=== PATIENT | female | born 1975 | race Two or more races ===

== ENCOUNTER 2019-04-20 17:39 | Inpatient (IN) | payer MEDICAID ==
[~2019-04-20] VITALS: Ht 162.6 cm; Wt 68.0 kg
[2019-04-20 17:50] VITALS: BP 129/87
--- NOTE | 2019-04-20 17:50 | NUR ---
ED Nurse Note: Patient came to ED from home c/o lower back pain and feeling cold x 2 days. Patient has history of DM 2, BG check now is 435, ERPA aware. 20 g IV started in right AC, blood drawn and sent to lab along with urine sample.
[2019-04-20] MEDS ORDERED: Morphine Sulfate 4mg/ml Inj (IV USE ONLY) IVP ONE (18:30)
[2019-04-20] MEDS ORDERED: Insulin Human Regular 100units/ml 3ml SUBQ ONE (18:30)
--- NOTE | 2019-04-20 18:32 | Emergency Room Report ---
History of Present Illness General Chief Complaint: Fever Source: Medical Record (Betty Day N. P.A.) Present Illness HPI 43-year-old female with history of diabetes presents with lower abdominal pain for 1 week. She saw her doctor 3 days ago and was prescribed Bactrim for a UTI. The dysuria she was having at the time has resolved a bit but she is still having abdominal pain, and is now also having some flank pain and fever. Patient had two episodes of vomiting. Patient is feeling chills and body aches but denies any cough or sore throat. No chest pain, hematuria, or diarrhea. (Betty Day N. P.A.) Allergies: Coded Allergies: AMPICILLIN (Verified Allergy, Unknown, 04/20/19) Patient History Past Medical History: see triage record Last Menstrual Period: 04/08/19 Reviewed Nursing Documentation: PMH: Agreed; PSxH: Agreed (Betty Day N. P.A.) Nursing Documentation-PMH Past Medical History: No History, Except For Hx Cardiac Problems: No Hx Hypertension: No Hx Pacemaker: No Hx Asthma: No Hx COPD: No Hx Diabetes: Yes - Type II Hx Cancer: No Hx Gastrointestinal Problems: Yes - Cholecystectomy Hx Dialysis: No History Of Psychiatric Problem: No Hx Neurological Problems: No Hx Cerebrovascular Accident: No Hx Seizures: No (Betty Day N. P.A.) Review of Systems All Other Systems: negative except mentioned in HPI (Betty Day N. P.A.) Physical Exam Vital Signs Date Time Temp Pulse Resp B/P (MAP) Pulse Ox O2 Delivery O2 Flow Rate FiO2 04/20/19 17:50 100.0 128 18 129/87 (101) 99 Room Air Sp02 EP Interpretation: reviewed, normal General Appearance: normal inspection, well appearing, no apparent distress, alert, GCS 15, non-toxic ENT: EOM grossly intact, normal pharynx, normal voice, TMs + canals normal, uvula midline Neck: normal inspection, full range of motion, supple, thyroid normal, no meningismus, no bony tend Respiratory: chest non-tender, lungs clear, normal breath sounds, no respiratory distress Cardiovascular #1: normal peripheral pulses, regular rate, rhythm Gastrointestinal: normal inspection, normal bowel sounds, non tender, soft, no mass, no organomegaly, no guarding, no rebound Genitourinary: CVA tenderness (R), CVA tenderness (L) Musculoskeletal: normal inspection, normal range of motion, gait/station normal Neurologic: alert, motor strength/tone normal, clinical partner III-XII nml as tested, oriented x3, sensory intact, speech normal Psychiatric: judgement/insight normal, mood/affect normal Skin: no rash, normal color, warm/dry Lymphatic: no adenopathy (Betty Day N. P.A.) Medical Decision Making PA Attestation Dr. Zuñiga is my supervising physician whom patient management and care has been discussed with. (Betty Day N. P.A.) PA Attestation I participated in the care of the patient along with Betty Day Briefly, this a 43-year-old female who was recently diagnosed with a urinary tract infection on Bactrim presenting with worsening lower pelvic pain now flank pain and fever. Urinalysis consistent with a persistent urinary tract infection and given her clinical presentation pyelonephritis. She remains febrile despite antipyretics and IV fluids. Patient be started on IV antibiotics and admitted for pyelonephritis. Labs also show hypokalemia which we will replete. Glucose elevated without anion gap; no indication of DKA at this time. Received IV fluids and insulin. (Zac Zuñiga MD) Diagnostic Impression: Primary Impression: Pyelonephritis Additional Impressions: Fever Qualified Codes: R50.9 - Fever, unspecified Hypokalemia Vomiting Qualified Codes: R11.2 - Nausea with vomiting, unspecified Hyperglycemia ER Course Pt. presents to the ED c/o lower abdominal pain, flank pain, fever. Ddx considered but are not limited to UTI, pyelonephritis, nephrolithiasis, appendicitis, gastroenteritis, , ovarian torsion, sepsis, influenza. Vital signs: Tachycardic at 128. Temperature of 100. H&PE are most consistent with pyelonephritis. ORDERS: CBC, CMP, lipase, urinalysis completed. WBC not elevated. Potassium low at 2.7. Glucose elevated at 431. Evidence of UTI on UA. ED INTERVENTIONS: Patient given IV normal saline for elevated blood sugar and tachycardia. Given 10 units regular insulin subcutaneous. Given morphine and Zofran for pain/nausea. Given Tylenol and Ibuprofen for fever. Given IV Ciprofloxacin for pyelonephritis. Given IV and PO KCl for hypokalemia. DISCHARGE: Patient will be admitted to Med/Surg for pyelonephritis and hypokalemia. Accepted by panel physician. Laboratory Tests Test 04/20/19 18:20 White Blood Count 9.1 K/UL (4.8-10.8) Red Blood Count 4.96 M/UL (4.20-5.40) Hemoglobin 11.6 G/DL (12.0-16.0) L Hematocrit 38.2 % (37.0-47.0) Mean Corpuscular Volume 77 FL (80-99) L Mean Corpuscular Hemoglobin 23.4 PG (27.0-31.0) L Mean Corpuscular Hemoglobin Concent 30.4 G/DL (32.0-36.0) L Red Cell Distribution Width 14.4 % (11.6-14.8) Platelet Count 232 K/UL (150-450) Mean Platelet Volume 8.8 FL (6.5-10.1) Neutrophils (%) (Auto) % (45.0-75.0) Lymphocytes (%) (Auto) % (20.0-45.0) Monocytes (%) (Auto) % (1.0-10.0) Eosinophils (%) (Auto) % (0.0-3.0) Basophils (%) (Auto) % (0.0-2.0) Neutrophils % (Manual) Pending Lymphocytes % (Manual) Pending Platelet Estimate Pending Platelet Morphology Pending Urine Color Pale yellow Urine Appearance Cloudy Urine pH 6 (4.5-8.0) Urine Specific [place] 1.005 (1.005-1.035) Urine Protein 1+ (NEGATIVE) H Urine Glucose (UA) 4+ (NEGATIVE) H Urine Ketones 3+ (NEGATIVE) H Urine Blood 2+ (NEGATIVE) H Urine Nitrite Negative (NEGATIVE) Urine Bilirubin Negative (NEGATIVE) Urine Urobilinogen Normal MG/DL (0.0-1.0) Urine Leukocyte Esterase 2+ (NEGATIVE) H Urine RBC 10-15 /HPF (0 - 2) H Urine WBC Tntc /HPF (0 - 2) H Urine Squamous Epithelial Cells Few /LPF (NONE/OCC) Urine Bacteria Many /HPF (NONE) H Urine HCG, Qualitative Pending Sodium Level 133 MMOL/L (136-145) L Potassium Level 2.7 MMOL/L (3.5-5.1) *L Chloride Level 96 MMOL/L (98-107) L Carbon Dioxide Level 24 MMOL/L (21-32) Anion Gap 14 mmol/L (5-15) Blood Urea Nitrogen 3 mg/dL (7-18) L Creatinine 0.8 MG/DL (0.55-1.30) Estimate Glomerular Filtration Rate > 60 mL/min (>60) Glucose Level 431 MG/DL (74-106) H Calcium Level 8.2 MG/DL (8.5-10.1) L Magnesium Level 1.7 MG/DL (1.8-2.4) L Total Bilirubin 0.5 MG/DL (0.2-1.0) Aspartate Amino Transferase (AST) 58 U/L (15-37) H Alanine Aminotransferase (ALT) 74 U/L (12-78) Alkaline Phosphatase 185 U/L (46-116) H Total Protein 8.1 G/DL (6.4-8.2) Albumin 3.0 G/DL (3.4-5.0) L Globulin 5.1 g/dL Albumin/Globulin Ratio 0.6 (1.0-2.7) L Lipase 67 U/L (73-393) L Acetone Level Negative (NEGATIVE) (Betty Day N. P.A.) Last Vital Signs Date Time Temp Pulse Resp B/P (MAP) Pulse Ox O2 Delivery O2 Flow Rate FiO2 04/20/19 17:50 100.0 128 18 129/87 (101) 99 Room Air (Betty Day N. P.A.) Disposition: ADMITTED INPATIENT Condition: Serious Betty Day N. P.AOlive Apr 20, 2019 18:32 Zac Zuñiga MD Apr 20, 2019 22:07
[2019-04-20 18:39] LABS: BILIRUBIN, URINE NEGATIVE (NEGATIVE); COLOR,URINE PALE YELLOW; GLUCOSE, URINE (UA) 4+ (NEGATIVE); KETONES,URINE 3+ (NEGATIVE); LEUKOCYTE ESTERASE ,URINE 2+ (NEGATIVE); NITRITE,URINE NEGATIVE (NEGATIVE); PH,URINE 6 (4.5-8.0); PROTEIN,URINE 1+ (NEGATIVE); UROBILINOGEN,URINE NORMAL MG/DL (0.0-1.0)
[2019-04-20 18:45] LABS: HEMATOCRIT 38.2 % (37.0-47.0); HEMOGLOBIN 11.6 G/DL (12.0-16.0); MEAN CORPUSCULAR VOLUME 77 FL (80-99); PLATELET COUNT 232 K/UL (150-450); RED BLOOD COUNT 4.96 M/UL (4.20-5.40); RED CELL DISTRIBUTION WIDTH 14.4 % (11.6-14.8); WHITE BLOOD COUNT 9.1 K/UL (4.8-10.8)
[2019-04-20] MEDS ORDERED: Acetaminophen 500mg (ES) tab ORAL ONE (18:45)
[2019-04-20 18:56] LABS: APPEARANCE,URINE CLOUDY
[2019-04-20 19:04] LABS: ALANINE AMINOTRANSFERASE 74 U/L (12-78); ALBUMIN/GLOBULIN RATIO 0.6 (1.0-2.7); ALKALINE PHOSPHATASE 185 U/L (46-116); ANION GAP 14 mmol/L (5-15); ASPARTATE AMINO TRANSFERASE 58 U/L (15-37); BILIRUBIN,TOTAL 0.5 MG/DL (0.2-1.0); BLOOD UREA NITROGEN 3 mg/dL (7-18); CALCIUM 8.2 MG/DL (8.5-10.1); CARBON DIOXIDE 24 MMOL/L (21-32); CHLORIDE 96 MMOL/L (98-107); CREATININE 0.8 MG/DL (0.55-1.30); SODIUM 133 MMOL/L (136-145)
[2019-04-20 19:05] LABS: POTASSIUM 2.7 MMOL/L (3.5-5.1)
--- NOTE | 2019-04-20 19:14 | NUR ---
HAND-OFF: Report given to Katherin SANCHEZ .
--- NOTE | 2019-04-20 19:14 | NUR ---
ED Nurse Note: Received report from LAURA Craig.
--- NOTE | 2019-04-20 20:01 | NUR ---
ED Nurse Note: Patient is febrile, ERMD informed.
--- NOTE | 2019-04-20 20:55 | NUR ---
ED Nurse Note: Temp recheck 99.8 F
--- NOTE | 2019-04-20 21:08 | NUR ---
ED Nurse Note: Report given to LAURA Frias in med surg.
--- NOTE | 2019-04-20 21:15 | NUR ---
ED Nurse Note: Patient cleared for transfer to med surg unit via gurney accompanied by cvt tech in stable condition.
[2019-04-20 21:25] VITALS: BP 101/62
[2019-04-20] MEDS ORDERED: Albuterol/Ipratropium 3ml neb HHN PRN (21:30)
[2019-04-20] MEDS ORDERED: Nitroglycerin Subl 0.4mg tab SL PRN (21:30)
[2019-04-20] MEDS ORDERED: Amikacin Rx to dose MISC PRN (21:30)
--- NOTE | 2019-04-20 21:35 | NUR ---
NURSE NOTES: Received report from Yon, weighmaster lead who got report from Summer ED RN. Pt is awake, lying semi-julien's; comfortably resting. No signs of acute distress noted. Pt reports 9/10 flank pain. AOx4; able to make needs known. Checked IV site, line, and rate; patent and running. No erythema, bleeding, or infiltration noted. Bed at lowest position. Brakes on. Siderails up x2. Call light within reach. Will continue to monitor.
[2019-04-20] MEDS ORDERED: Vancomycin 1 GM in D5W 275 ML IVPB SCH (22:00)
[2019-04-20] MEDS: Aztreonam Inj 1 GM in NS 55 ML IVPB SCH (22:00)
--- NOTE | 2019-04-20 23:08 | NUR ---
NURSE NOTES: Patient has 4 different antibiotics ordered. Pharmacy wants to double check with MD first if giving all antibiotics. Contacted Dr. Smallwood regarding orders. Patient also asked for pain medication. Informed MD and awaiting callback.
[2019-04-20] MEDS ORDERED: METFORMIN HCL500 M1 ORAL (23:20)
[2019-04-21] VITALS: BP 95/63
--- NOTE | 2019-04-21 01:00 | NUR ---
NURSE NOTES: Contacted and left a voicemail for Dr. Smallwood regarding antibiotics clarification orders and pain medication for the patient. Still awaiting callback.
[2019-04-21] MEDS ORDERED: Amikacin 1,000 MG in NS 110 ML IV SCH (02:00)
[2019-04-21 04:00] VITALS: BP 97/69
[2019-04-21] MEDS ORDERED: Vancomycin 1 GM in D5W 275 ML IVPB SCH ×3 (05:00)
[2019-04-21] MEDS: NovoLOG Insulin Flexpen SUBQ SCH ×4 (06:26→21:41)
--- NOTE | 2019-04-21 06:33 | NUR ---
NURSE NOTES: Dr. Smallwood gave orders, noted and carried out. See orders for details.
[2019-04-21 06:40] LABS: BASOPHILS % (AUTO) 0.2 % (0.0-2.0); EOSINOPHILS % (AUTO) 0.5 % (0.0-3.0); LYMPHOCYTES % (AUTO) 9.7 % (20.0-45.0); MEAN CORPUSCULAR VOLUME 75 FL (80-99); NEUTROPHILS % (AUTO) 83.6 % (45.0-75.0); PLATELET COUNT 175 K/UL (150-450); RED BLOOD COUNT 4.16 M/UL (4.20-5.40); RED CELL DISTRIBUTION WIDTH 13.9 % (11.6-14.8); WHITE BLOOD COUNT 12.1 K/UL (4.8-10.8)
[2019-04-21 06:55] LABS: ALANINE AMINOTRANSFERASE 72 U/L (12-78); ALBUMIN 2.2 G/DL (3.4-5.0); ALBUMIN/GLOBULIN RATIO 0.5 (1.0-2.7); ALKALINE PHOSPHATASE 159 U/L (46-116); ANION GAP 11 mmol/L (5-15); ASPARTATE AMINO TRANSFERASE 89 U/L (15-37); BILIRUBIN,TOTAL 0.6 MG/DL (0.2-1.0); BLOOD UREA NITROGEN 1 mg/dL (7-18); CALCIUM 7.5 MG/DL (8.5-10.1); CARBON DIOXIDE 21 MMOL/L (21-32); CHLORIDE 108 MMOL/L (98-107); CREATININE 0.5 MG/DL (0.55-1.30); POTASSIUM 3.8 MMOL/L (3.5-5.1); SODIUM 140 MMOL/L (136-145)
--- NOTE | 2019-04-21 07:15 | NUR ---
HAND-OFF: Report given to LAURA Quintanilla. Pt is awake and in stable condition. Plan of care endorsed.
--- NOTE | 2019-04-21 07:30 | NUR ---
NURSE NOTES: Patient is in bed awake and able to verbalize needs. Stable. C/o pain, will administer pain medication as necessary as ordered. Patient is encouraged to use call light for assistance, verbalized understanding. patient is in bed in locked and lowest position with call light within reach. All needs met. Will continue to monitor.
[2019-04-21 08:00] VITALS: BP 90/58
[2019-04-21] MEDS: Aztreonam Inj 1 GM in NS 55 ML IVPB SCH ×3 (08:02→21:28)
[2019-04-21] MEDS: Morphine Sulfate 4mg/ml Inj (IV USE ONLY) IVP PRN ×3 (09:18→21:27)
[2019-04-21] MEDS: Heparin 5000 units/ml inj SUBQ SCH ×2 (09:25→21:41)
[2019-04-21 12:00] VITALS: BP 95/67
--- NOTE | 2019-04-21 12:33 | Pulmonology Progress Note ---
Assessment/Plan Problems: (1) Pyelonephritis (2) Vomiting (3) Fever (4) Diabetes mellitus (5) Hyperglycemia Assessment/Plan warren culture iv fluids iv abx ID and GI to see Subjective ROS Limited/Unobtainable: No Constitutional: Reports: no symptoms HEENT: Repors: no symptoms Allergies: Coded Allergies: AMPICILLIN (Verified Allergy, Unknown, 04/20/19) Objective Last 24 Hour Vital Signs Date Time Temp Pulse Resp B/P (MAP) Pulse Ox O2 Delivery O2 Flow Rate FiO2 04/21/19 09:00 Room Air 04/21/19 08:00 98.5 92 18 90/58 (69) 98 04/21/19 04:00 97.6 81 19 97/69 (78) 98 04/21/19 00:06 98.6 04/21/19 00:00 98.6 107 20 95/63 (74) 99 04/20/19 21:59 Room Air 04/20/19 21:25 100.2 112 21 101/62 (75) 96 04/20/19 21:15 99.8 113 20 102/59 98 Room Air 04/20/19 20:36 99.8 04/20/19 20:01 102.9 04/20/19 19:08 100.1 04/20/19 17:50 100.0 108 18 129/87 99 Room Air 04/20/19 17:50 108 18 Room Air 04/20/19 17:50 100.0 128 18 129/87 (101) 99 Room Air Intake and Output 04/20/19 04/21/19 19:00 07:00 Intake Total 0 ml 1248 ml Balance 0 ml 1248 ml Intake Oral 0 ml IV Total 1200 ml Other 48 ml HEENT: atraumatic Respiratory/Chest: normal breath sounds Cardiovascular: normal peripheral pulses, normal rate Abdomen: normal bowel sounds, no organomegaly Microbiology Date/Time Source Procedure Growth Status 04/20/19 18:20 Urine,Clean Catch Urine Culture - Preliminary Gram Negative Bacillus 1 Resulted Laboratory Tests 04/20/19 18:20: White Blood Count 9.1, Red Blood Count 4.96, Hemoglobin 11.6L, Hematocrit 38.2, Mean Corpuscular Volume 77L, Mean Corpuscular Hemoglobin 23.4L, Mean Corpuscular Hemoglobin Concent 30.4L, Red Cell Distribution Width 14.4, Platelet Count 232, Mean Platelet Volume 8.8, Neutrophils (%) (Auto) , Lymphocytes (%) (Auto) , Monocytes (%) (Auto) , Eosinophils (%) (Auto) , Basophils (%) (Auto) , Differential Total Cells Counted 100, Neutrophils % ( Manual) 84H, Lymphocytes % (Manual) 13L, Monocytes % (Manual) 3, Eosinophils % ( Manual) 0, Basophils % (Manual) 0, Band Neutrophils 0, Platelet Estimate Adequate, Platelet Morphology Normal, Polychromasia 1+, Hypochromasia 1+, Microcytosis 1+, Urine Color Pale yellow, Urine Appearance Cloudy, Urine pH 6, Urine Specific [place] 1.005, Urine Protein 1+H, Urine Glucose (UA) 4+H, Urine Ketones 3+H, Urine Blood 2+H, Urine Nitrite Negative, Urine Bilirubin Negative, Urine Urobilinogen Normal, Urine Leukocyte Esterase 2+H, Urine RBC 10-15H, Urine WBC TntcH, Urine Squamous Epithelial Cells Few, Urine Bacteria ManyH, Urine HCG, Qualitative Negative, Sodium Level 133L, Potassium Level 2.7*L, Chloride Level 96L, Carbon Dioxide Level 24, Anion Gap 14, Blood Urea Nitrogen 3L, Creatinine 0.8, Estimat Glomerular Filtration Rate > 60, Glucose Level 431H , Calcium Level 8.2L, Magnesium Level 1.7L, Total Bilirubin 0.5, Aspartate Amino Transf (AST/SGOT) 58H, Alanine Aminotransferase (ALT/SGPT) 74, Alkaline Phosphatase 185H, Total Protein 8.1, Albumin 3.0L, Globulin 5.1, Albumin/ Globulin Ratio 0.6L, Lipase 67L, Acetone Level Negative 04/21/19 05:25: White Blood Count 12.1H, Red Blood Count 4.16L, Hemoglobin 10.0L, Hematocrit 31.0L, Mean Corpuscular Volume 75L, Mean Corpuscular Hemoglobin 24.1L, Mean Corpuscular Hemoglobin Concent 32.3, Red Cell Distribution Width 13.9, Platelet Count 175, Mean Platelet Volume 7.2, Neutrophils (%) (Auto) 83.6H, Lymphocytes ( %) (Auto) 9.7L, Monocytes (%) (Auto) 6.0, Eosinophils (%) (Auto) 0.5, Basophils (%) (Auto) 0.2, Sodium Level 140, Potassium Level 3.8, Chloride Level 108H, Carbon Dioxide Level 21, Anion Gap 11, Blood Urea Nitrogen 1L, Creatinine 0.5L, Estimat Glomerular Filtration Rate > 60, Glucose Level 316#H, Calcium Level 7.5L , Total Bilirubin 0.6, Aspartate Amino Transf (AST/SGOT) 89H, Alanine Aminotransferase (ALT/SGPT) 72, Alkaline Phosphatase 159H, Total Protein 6.3L, Albumin 2.2L, Globulin 4.1, Albumin/Globulin Ratio 0.5L Current Medications Medications (Trade) Dose Ordered Sig/Shira Route PRN Reason Start Time Stop Time Status Last Admin Dose Admin Acetaminophen (Tylenol) 650 mg Q4H PRN ORAL fever 04/20/19 21:30 05/20/19 21:29 04/20/19 23:36 Albuterol/ Ipratropium (Albuterol/ Ipratropium) 3 ml Q4H PRN HHN Shortness of Breath 04/20/19 21:30 04/25/19 21:29 Aztreonam 1 gm/ Sodium Chloride 55 ml @ 110 mls/hr EVERY 8 HOURS IVPB 04/20/19 22:00 04/27/19 21:59 04/21/19 08:02 Dextrose (Dextrose 50%) 25 ml Q30M PRN IV Hypoglycemia 04/20/19 21:30 05/20/19 21:29 Dextrose (Dextrose 50%) 50 ml Q30M PRN IV Hypoglycemia 04/20/19 21:30 05/20/19 21:29 Diphenhydramine HCl (Benadryl) 25 mg Q6H PRN IVP Itching 04/21/19 11:15 05/21/19 11:14 Heparin Sodium (Porcine) (Heparin 5000 units/ml) 5,000 units EVERY 12 HOURS SUBQ 04/21/19 09:00 05/21/19 08:59 04/21/19 09:25 Insulin Aspart (NovoLOG) BEFORE MEALS AND HS SUBQ 04/21/19 06:30 05/21/19 06:29 04/21/19 06:26 Levofloxacin 100 ml @ 100 mls/hr Q24H IVPB 04/21/19 09:00 04/28/19 08:59 04/21/19 09:18 Morphine Sulfate (Morphine Sulfate) 4 mg Q4H PRN IVP For Pain 04/21/19 07:15 04/28/19 07:14 04/21/19 09:18 Nitroglycerin (Ntg) 0.4 mg Q5M PRN SL Prn Chest Pain 04/20/19 21:30 05/20/19 21:29 Ondansetron HCl (Zofran) 4 mg Q6H PRN IVP Nausea & Vomiting 04/20/19 21:30 05/20/19 21:29 04/21/19 10:47 Polyethylene Glycol (Miralax) 17 gm DAILYPRN PRN ORAL Constipation 04/20/19 21:30 05/20/19 21:29 Temazepam (Restoril) 15 mg HSPRN PRN ORAL Insomnia 04/20/19 21:30 04/27/19 21:29 04/20/19 23:29 Vancomycin HCl 1 gm/Dextrose 275 ml @ 183.3 mls/ hr Q12H IVPB 04/21/19 05:00 04/26/19 04:59 04/21/19 05:08 Federico Smallwood MD Apr 21, 2019 12:33
--- NOTE | 2019-04-21 14:53 | General Progress Note ---
Assessment/Plan Assessment/Plan: N/V UTI pyelonephritis elevated LFTS anemia elevated lipase abx abd us repeat labs anemia work up will fu Subjective ROS Limited/Unobtainable: Yes Allergies: Coded Allergies: AMPICILLIN (Verified Allergy, Unknown, 04/20/19) Objective Last 24 Hour Vital Signs Date Time Temp Pulse Resp B/P (MAP) Pulse Ox O2 Delivery O2 Flow Rate FiO2 04/21/19 09:00 Room Air 04/21/19 08:00 98.5 92 18 90/58 (69) 98 04/21/19 04:00 97.6 81 19 97/69 (78) 98 04/21/19 00:06 98.6 04/21/19 00:00 98.6 107 20 95/63 (74) 99 04/20/19 21:59 Room Air 04/20/19 21:25 100.2 112 21 101/62 (75) 96 04/20/19 21:15 99.8 113 20 102/59 98 Room Air 04/20/19 20:36 99.8 04/20/19 20:01 102.9 04/20/19 19:08 100.1 04/20/19 17:50 100.0 108 18 129/87 99 Room Air 04/20/19 17:50 108 18 Room Air 04/20/19 17:50 100.0 128 18 129/87 (101) 99 Room Air Intake and Output 04/20/19 04/21/19 19:00 07:00 Intake Total 0 ml 1248 ml Balance 0 ml 1248 ml Intake Oral 0 ml IV Total 1200 ml Other 48 ml Laboratory Tests 04/20/19 18:20: White Blood Count 9.1, Red Blood Count 4.96, Hemoglobin 11.6L, Hematocrit 38.2, Mean Corpuscular Volume 77L, Mean Corpuscular Hemoglobin 23.4L, Mean Corpuscular Hemoglobin Concent 30.4L, Red Cell Distribution Width 14.4, Platelet Count 232, Mean Platelet Volume 8.8, Neutrophils (%) (Auto) , Lymphocytes (%) (Auto) , Monocytes (%) (Auto) , Eosinophils (%) (Auto) , Basophils (%) (Auto) , Differential Total Cells Counted 100, Neutrophils % ( Manual) 84H, Lymphocytes % (Manual) 13L, Monocytes % (Manual) 3, Eosinophils % ( Manual) 0, Basophils % (Manual) 0, Band Neutrophils 0, Platelet Estimate Adequate, Platelet Morphology Normal, Polychromasia 1+, Hypochromasia 1+, Microcytosis 1+, Urine Color Pale yellow, Urine Appearance Cloudy, Urine pH 6, Urine Specific [place] 1.005, Urine Protein 1+H, Urine Glucose (UA) 4+H, Urine Ketones 3+H, Urine Blood 2+H, Urine Nitrite Negative, Urine Bilirubin Negative, Urine Urobilinogen Normal, Urine Leukocyte Esterase 2+H, Urine RBC 10-15H, Urine WBC TntcH, Urine Squamous Epithelial Cells Few, Urine Bacteria ManyH, Urine HCG, Qualitative Negative, Sodium Level 133L, Potassium Level 2.7*L, Chloride Level 96L, Carbon Dioxide Level 24, Anion Gap 14, Blood Urea Nitrogen 3L, Creatinine 0.8, Estimat Glomerular Filtration Rate > 60, Glucose Level 431H , Calcium Level 8.2L, Magnesium Level 1.7L, Total Bilirubin 0.5, Aspartate Amino Transf (AST/SGOT) 58H, Alanine Aminotransferase (ALT/SGPT) 74, Alkaline Phosphatase 185H, Total Protein 8.1, Albumin 3.0L, Globulin 5.1, Albumin/ Globulin Ratio 0.6L, Lipase 67L, Acetone Level Negative 04/21/19 05:25: White Blood Count 12.1H, Red Blood Count 4.16L, Hemoglobin 10.0L, Hematocrit 31.0L, Mean Corpuscular Volume 75L, Mean Corpuscular Hemoglobin 24.1L, Mean Corpuscular Hemoglobin Concent 32.3, Red Cell Distribution Width 13.9, Platelet Count 175, Mean Platelet Volume 7.2, Neutrophils (%) (Auto) 83.6H, Lymphocytes ( %) (Auto) 9.7L, Monocytes (%) (Auto) 6.0, Eosinophils (%) (Auto) 0.5, Basophils (%) (Auto) 0.2, Sodium Level 140, Potassium Level 3.8, Chloride Level 108H, Carbon Dioxide Level 21, Anion Gap 11, Blood Urea Nitrogen 1L, Creatinine 0.5L, Estimat Glomerular Filtration Rate > 60, Glucose Level 316#H, Calcium Level 7.5L , Total Bilirubin 0.6, Aspartate Amino Transf (AST/SGOT) 89H, Alanine Aminotransferase (ALT/SGPT) 72, Alkaline Phosphatase 159H, Total Protein 6.3L, Albumin 2.2L, Globulin 4.1, Albumin/Globulin Ratio 0.5L Height (Feet): 5 Height (Inches): 4.00 Weight (Pounds): 150 General Appearance: alert EENT: normal ENT inspection Neck: supple Cardiovascular: normal rate Respiratory/Chest: lungs clear Abdomen: normal bowel sounds, non tender, soft Extremities: non-tender Roni Alvarez MD Apr 21, 2019 14:53
--- NOTE | 2019-04-21 15:29 | Consultation ---
History of Present Illness General Date patient seen: Apr 21, 2019 Chief Complaint: Fever Present Illness HPI 43 y/o F with hx of DM2, s/p cholecystectomy presented to ED on 04/20/19 with 1 week of lower abd pain. Recently saw PCP for dysuria and was prescribed Bactrim for UTI. Dysuria resolved but patient having abdominal and flank pain and fever ; 2 episodes of vomiting, chills, body aches. Denied cough, sore throat, chest pain, hematuria, diarrhea. Allergies: Coded Allergies: AMPICILLIN (Verified Allergy, Unknown, 04/20/19) Medication History Scheduled Metformin Hcl* (Metformin Hcl*), 500 MG ORAL TWICE A DAY, (Reported) Patient History Healthcare decision maker N Resuscitation status Full Code Advanced Directive on File Patient History Narrative Pmhx: as above Shx: reviewed Fhx: non contributory Physical Exam Physical Exam Narrative General Appearance: alert EENT: normal ENT inspection Neck: supple Cardiovascular: normal rate Respiratory/Chest: lungs clear Abdomen: normal bowel sounds, non tender, soft Extremities: non-tender Last 24 Hour Vital Signs Date Time Temp Pulse Resp B/P (MAP) Pulse Ox O2 Delivery O2 Flow Rate FiO2 04/21/19 09:00 Room Air 04/21/19 08:00 98.5 92 18 90/58 (69) 98 04/21/19 04:00 97.6 81 19 97/69 (78) 98 04/21/19 00:06 98.6 04/21/19 00:00 98.6 107 20 95/63 (74) 99 04/20/19 21:59 Room Air 04/20/19 21:25 100.2 112 21 101/62 (75) 96 04/20/19 21:15 99.8 113 20 102/59 98 Room Air 04/20/19 20:36 99.8 04/20/19 20:01 102.9 04/20/19 19:08 100.1 04/20/19 17:50 100.0 108 18 129/87 99 Room Air 04/20/19 17:50 108 18 Room Air 04/20/19 17:50 100.0 128 18 129/87 (101) 99 Room Air Intake and Output 04/20/19 04/21/19 19:00 07:00 Intake Total 0 ml 1248 ml Balance 0 ml 1248 ml Intake Oral 0 ml IV Total 1200 ml Other 48 ml Laboratory Tests Test 04/20/19 18:20 04/21/19 05:25 White Blood Count 9.1 K/UL (4.8-10.8) 12.1 K/UL (4.8-10.8) H Red Blood Count 4.96 M/UL (4.20-5.40) 4.16 M/UL (4.20-5.40) L Hemoglobin 11.6 G/DL (12.0-16.0) L 10.0 G/DL (12.0-16.0) L Hematocrit 38.2 % (37.0-47.0) 31.0 % (37.0-47.0) L Mean Corpuscular Volume 77 FL (80-99) L 75 FL (80-99) L Mean Corpuscular Hemoglobin 23.4 PG (27.0-31.0) L 24.1 PG (27.0-31.0) L Mean Corpuscular Hemoglobin Concent 30.4 G/DL (32.0-36.0) L 32.3 G/DL (32.0-36.0) Red Cell Distribution Width 14.4 % (11.6-14.8) 13.9 % (11.6-14.8) Platelet Count 232 K/UL (150-450) 175 K/UL (150-450) Mean Platelet Volume 8.8 FL (6.5-10.1) 7.2 FL (6.5-10.1) Neutrophils (%) (Auto) % (45.0-75.0) 83.6 % (45.0-75.0) H Lymphocytes (%) (Auto) % (20.0-45.0) 9.7 % (20.0-45.0) L Monocytes (%) (Auto) % (1.0-10.0) 6.0 % (1.0-10.0) Eosinophils (%) (Auto) % (0.0-3.0) 0.5 % (0.0-3.0) Basophils (%) (Auto) % (0.0-2.0) 0.2 % (0.0-2.0) Differential Total Cells Counted 100 Neutrophils % (Manual) 84 % (45-75) H Lymphocytes % (Manual) 13 % (20-45) L Monocytes % (Manual) 3 % (1-10) Eosinophils % (Manual) 0 % (0-3) Basophils % (Manual) 0 % (0-2) Band Neutrophils 0 % (0-8) Platelet Estimate Adequate Platelet Morphology Normal Polychromasia 1+ Hypochromasia 1+ Microcytosis 1+ Urine Color Pale yellow Urine Appearance Cloudy Urine pH 6 (4.5-8.0) Urine Specific Home 1.005 (1.005-1.035) Urine Protein 1+ (NEGATIVE) H Urine Glucose (UA) 4+ (NEGATIVE) H Urine Ketones 3+ (NEGATIVE) H Urine Blood 2+ (NEGATIVE) H Urine Nitrite Negative (NEGATIVE) Urine Bilirubin Negative (NEGATIVE) Urine Urobilinogen Normal MG/DL (0.0-1.0) Urine Leukocyte Esterase 2+ (NEGATIVE) H Urine RBC 10-15 /HPF (0 - 2) H Urine WBC Tntc /HPF (0 - 2) H Urine Squamous Epithelial Cells Few /LPF (NONE/OCC) Urine Bacteria Many /HPF (NONE) H Urine HCG, Qualitative Negative (NEGATIVE) Sodium Level 133 MMOL/L (136-145) L 140 MMOL/L (136-145) Potassium Level 2.7 MMOL/L (3.5-5.1) *L 3.8 MMOL/L (3.5-5.1) Chloride Level 96 MMOL/L (98-107) L 108 MMOL/L (98-107) H Carbon Dioxide Level 24 MMOL/L (21-32) 21 MMOL/L (21-32) Anion Gap 14 mmol/L (5-15) 11 mmol/L (5-15) Blood Urea Nitrogen 3 mg/dL (7-18) L 1 mg/dL (7-18) L Creatinine 0.8 MG/DL (0.55-1.30) 0.5 MG/DL (0.55-1.30) L Estimat Glomerular Filtration Rate > 60 mL/min (>60) > 60 mL/min (>60) Glucose Level 431 MG/DL (74-106) H 316 MG/DL (74-106) #H Calcium Level 8.2 MG/DL (8.5-10.1) L 7.5 MG/DL (8.5-10.1) L Magnesium Level 1.7 MG/DL (1.8-2.4) L Total Bilirubin 0.5 MG/DL (0.2-1.0) 0.6 MG/DL (0.2-1.0) Aspartate Amino Transf (AST/SGOT) 58 U/L (15-37) H 89 U/L (15-37) H Alanine Aminotransferase (ALT/SGPT) 74 U/L (12-78) 72 U/L (12-78) Alkaline Phosphatase 185 U/L (46-116) H 159 U/L (46-116) H Total Protein 8.1 G/DL (6.4-8.2) 6.3 G/DL (6.4-8.2) L Albumin 3.0 G/DL (3.4-5.0) L 2.2 G/DL (3.4-5.0) L Globulin 5.1 g/dL 4.1 g/dL Albumin/Globulin Ratio 0.6 (1.0-2.7) L 0.5 (1.0-2.7) L Lipase 67 U/L (73-393) L Acetone Level Negative (NEGATIVE) Microbiology Date/Time Source Procedure Growth Status 04/20/19 18:20 Urine,Clean Catch Urine Culture - Preliminary Gram Negative Bacillus 1 Resulted Height (Feet): 5 Height (Inches): 4.00 Weight (Pounds): 150 Medications Current Medications Medications (Trade) Dose Ordered Sig/Shira Route PRN Reason Start Time Stop Time Status Last Admin Dose Admin Acetaminophen (Tylenol) 650 mg Q4H PRN ORAL fever 04/20/19 21:30 05/20/19 21:29 04/20/19 23:36 Albuterol/ Ipratropium (Albuterol/ Ipratropium) 3 ml Q4H PRN HHN Shortness of Breath 04/20/19 21:30 04/25/19 21:29 Aztreonam 1 gm/ Sodium Chloride 55 ml @ 110 mls/hr EVERY 8 HOURS IVPB 04/20/19 22:00 04/27/19 21:59 04/21/19 14:00 Dextrose (Dextrose 50%) 25 ml Q30M PRN IV Hypoglycemia 04/20/19 21:30 05/20/19 21:29 Dextrose (Dextrose 50%) 50 ml Q30M PRN IV Hypoglycemia 04/20/19 21:30 05/20/19 21:29 Diphenhydramine HCl (Benadryl) 25 mg Q6H PRN IVP Itching 04/21/19 11:15 05/21/19 11:14 Heparin Sodium (Porcine) (Heparin 5000 units/ml) 5,000 units EVERY 12 HOURS SUBQ 04/21/19 09:00 05/21/19 08:59 04/21/19 09:25 Insulin Aspart (NovoLOG) BEFORE MEALS AND HS SUBQ 04/21/19 06:30 05/21/19 06:29 04/21/19 12:44 Levofloxacin 100 ml @ 100 mls/hr Q24H IVPB 04/21/19 09:00 04/28/19 08:59 04/21/19 09:18 Morphine Sulfate (Morphine Sulfate) 4 mg Q4H PRN IVP For Pain 04/21/19 07:15 04/28/19 07:14 04/21/19 14:38 Nitroglycerin (Ntg) 0.4 mg Q5M PRN SL Prn Chest Pain 04/20/19 21:30 05/20/19 21:29 Ondansetron HCl (Zofran) 4 mg Q6H PRN IVP Nausea & Vomiting 04/20/19 21:30 05/20/19 21:29 04/21/19 10:47 Polyethylene Glycol (Miralax) 17 gm DAILYPRN PRN ORAL Constipation 04/20/19 21:30 05/20/19 21:29 Potassium Chloride/Sodium Chloride 1,000 ml @ 75 mls/hr [id number] IV 04/21/19 15:00 05/21/19 14:59 Temazepam (Restoril) 15 mg HSPRN PRN ORAL Insomnia 04/20/19 21:30 04/27/19 21:29 04/20/19 23:29 Vancomycin HCl 1 gm/Sodium Chloride 275 ml @ 183.3 mls/ hr Q12H IVPB 04/21/19 17:00 04/26/19 16:59 Assessment/Plan Assessment/Plan: Abx: IV Vancomycin 04/21- Levaquin 04/21- Cipro x1 04/20 Aztreonam 04/20- Assessment: Sepsis UTI/pyelonephritis -u/a wbc tnct, nit neg, leuk +2; ucx >100k GNR Fever Leukocytosis DM2 s/p cholecystectomy Plan: -Continue empiric Levaquin #1 and aztreonam #2 pending ucx -D/c empiric IV Vancomycin #1 -f/u cx -Monitor CBC/CMP, temperatures Thank you for this consultation. Will continue to follow along with you. Discussed with Lupe Devine M.D. Apr 21, 2019 15:29
--- NOTE | 2019-04-21 15:37 | History & Physical ---
History and Physical History & Physicial Arnoldo Alvarez MD Apr 21, 2019 15:36
[2019-04-21] MEDS: DiphenhydrAMINE 50mg/ml Inj IVP PRN ×2 (15:58→22:14)
[2019-04-21] MEDS: NS w/KCl 40mEq 1,000 ML IV SCH (15:58)
[2019-04-21 16:00] VITALS: BP 100/60
[2019-04-21] MEDS ORDERED: Vancomycin 1 GM in NS 275 ML IVPB SCH (17:00)
--- NOTE | 2019-04-21 17:10 | NUR ---
CASE MANAGEMENT:INITIAL REVIEW 43YR OLD FEMALE FROM HOME CC: FEVER, VOMITING HYPERGLYCEMIA SI:PYELONEPHRITIS . HYPOKALEMIA . FEVER 100.1 128 18 129/87 99% ON RA K+2.7 NA+133 BG 431 CA+ 8.2 MG 1.7 IS:IV NS BOLUS X2 IV CIPRO X1 IV KCL X1 IV MORPHINE SULFATE X1 IV ZOFRAN X1 NOVOLOG SQ X1 TYLENOL PO X1 \: 3E MED SURG UNIT DCP: HOME WHEN STABLE CASE MANAGEMENT: REVIEW 04/21/2019 SI:PYELONEPHRITIS . HYPOKALEMIA . FEVER 98.5 92 18 90/58 98% ON RA BG 316 CA+7.6 WBC 12.1 H/H 10.0/31.0 IS: IV AZTREONAM Q8HR IV LEVOFLOXACIN Q24HR HEPARIN SQ BID IV KCL @75ML/HR IV MORPHINE SULFATE Q4HR/PRN IV ZOFRAN Q6HR/PRN NOVOLOG SQ AC&HS TYLENOL PO Q4HR/PRN \: 3E MED SURG UNIT DCP: HOME WHEN STABLE
--- NOTE | 2019-04-21 19:30 | NUR ---
HAND-OFF: Report given to Roula SANCHEZ. Patient is stable.
--- NOTE | 2019-04-21 19:34 | NUR ---
NURSE NOTES: Tylenol administered for temperature 102.6 oral. Cooling measures provided.
--- NOTE | 2019-04-21 19:34 | NUR ---
Received patient on bed, awake and verbally responsive. with fever of 12.6. previous nurse administered tylenol. cooling measures provided.reiterated to call or ask for assistance. bed locked and in lowest position.call light and light button within easy reach. reiterated to be on npo after midnight except ice chips and meds for procedure tomorrow.will continue plan of care. Addendum: 04/21/19 at 1999 by Alejandra Castaneda RN NURSE NOTES:
--- NOTE | 2019-04-21 19:45 | History and Physical Report ---
DATE OF ADMISSION: 04/20/2019 CHIEF COMPLAINT: Lower abdominal pain radiated to the back. HISTORY OF PRESENT ILLNESS: This is a 43-year-old female with past medical history significant for diabetes type 2, history of cholecystectomy who presented to the emergency department complaining about lower abdominal pain radiated to the back associated with fever, chills. The patient was seen by her primary physician due to dysuria and presumably UTI, was started on Bactrim. However, her symptoms did not improve. Dysuria has improved. However, pain became progressively worsening and fever, chills, nausea, vomiting, headache. Shortly after initial evaluation in the emergency department, the patient was admitted to the hospital with sepsis secondary to urinary tract infection, possible pyelonephritis as well as hyponatremia, hypokalemia. PAST MEDICAL HISTORY/PAST SURGICAL HISTORY: As above history of diabetes type 2, cholecystectomy. MEDICATIONS AT HOME: Metformin 500 mg twice a day. SOCIAL HISTORY: The patient denies any smoking, alcohol, or drugs. She is unemployed. 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 FAMILY HISTORY: Noncontributory except diabetes in father who . REVIEW OF SYSTEMS: Mostly as above. Positive dysuria and frequency. Denies any hemoptysis or hematochezia. Complained about nausea, vomiting, lower abdominal pain. Denies any loss of consciousness. Denies any fall or head trauma. PHYSICAL EXAMINATION: VITAL SIGNS: On admission from the emergency department noted to have a temperature 100, pulse of 128, respirations 18, blood pressure 129/87. GENERAL: The patient is awake and responsive, in no acute distress. HEAD AND NECK: Pupils are equal and reactive to light. Extraocular muscles intact. Neck was supple. No JVD. LUNGS: Good air entry. No wheezes or rales. HEART: S1, S2. Regular rate and rhythm. No gallops. ABDOMEN: Soft. Tenderness in lower quadrant. No rebound tenderness. No fluid shift. CVA tenderness in bilateral flank area. EXTREMITIES: No cyanosis, clubbing, or edema NEUROLOGIC: Cranial nerves II through XII grossly normal. Motor 5/5 in all extremities. Gait is intact. RECTAL: Refused and deferred. GENITOURINARY: Refused and deferred. PSYCHIATRIC: Mood and affect is intact. LABORATORY DATA: On admission from the emergency department, WBC of 9.1, hemoglobin 11, hematocrit 38, platelet is 232. Sodium 133, potassium , chloride 96, bicarbonate 24, BUN 3, creatinine 0.8, glucose is 431, calcium is 8.2, magnesium is 1.7. ALT of 50, AST of 74, alkaline phosphate is 185. Lipase is 67. UA is cloudy, +1 protein, +4 glucose, +2 ketone, nitrite negative, many bacteria. Beta-hCG is negative. Acetone level is negative. Urine culture showed gram-negative bacilli. ASSESSMENT: 1. Lower abdominal pain as well as dysuria, most likely secondary to the sepsis as a result of gram-negative bacilli UTI. 2. Diabetes type 2, uncontrolled. 3. Nausea, vomiting, abnormal liver function, most likely secondary to the intra-abdominal infection. 4. Hypokalemia. 5. Dehydration. PLAN: Admit the patient to medical floor. We will follow up with the laboratory as well as culture. Broad-spectrum antibiotics with Levaquin and Azactam. The patient has penicillin allergy. We will follow up with Dr. Valles consultation from Infectious Disease as well as Dr. Alvarez from GI, Dr. Smallwood from Pulmonary. Code status is Full code. DVT prophylaxis SCD. Arnoldo Alvarez M.D. DR: CLAUDIA JOB#: [id number] CC:
[2019-04-21 20:00] VITALS: BP 121/82
[2019-04-22] VITALS: BP 117/78
[2019-04-22 04:00] VITALS: BP 120/78
[2019-04-22] MEDS: NS w/KCl 40mEq 1,000 ML IV SCH ×2 (04:25→18:21)
[2019-04-22] MEDS: Morphine Sulfate 4mg/ml Inj (IV USE ONLY) IVP PRN ×3 (05:28→18:53)
[2019-04-22] MEDS: Aztreonam Inj 1 GM in NS 55 ML IVPB SCH (05:28)
[2019-04-22] MEDS: NovoLOG Insulin Flexpen SUBQ SCH ×5 (06:28→21:42)
--- NOTE | 2019-04-22 07:06 | NUR ---
HAND-OFF: Report given to shirley xie.
--- NOTE | 2019-04-22 07:10 | NUR ---
NURSE NOTES: Received patient in bed, awake, not in respiratory/cardiac distress. Patient is able to urinate with mild pain on lower abdomen, no bloody urine. Afebrile. On NPO for US abdomen. 2 IV's are intact, no s/s of infiltration. Bed is in lowest position and locked. Call light and personnel items within reach. Will continue plan of care.
[2019-04-22 07:14] LABS: PHOSPHORUS 2.7 MG/DL (2.5-4.9)
[2019-04-22 07:19] LABS: ALANINE AMINOTRANSFERASE 66 U/L (12-78); ALBUMIN 2.2 G/DL (3.4-5.0); ALBUMIN/GLOBULIN RATIO 0.5 (1.0-2.7); ALKALINE PHOSPHATASE 150 U/L (46-116); AMYLASE 16 U/L (25-115); ANION GAP 10 mmol/L (5-15); ASPARTATE AMINO TRANSFERASE 43 U/L (15-37); BILIRUBIN,TOTAL 0.4 MG/DL (0.2-1.0); BLOOD UREA NITROGEN 1 mg/dL (7-18); CALCIUM 7.8 MG/DL (8.5-10.1); CARBON DIOXIDE 24 MMOL/L (21-32); CHLORIDE 103 MMOL/L (98-107); CREATININE 0.4 MG/DL (0.55-1.30); POTASSIUM 3.3 MMOL/L (3.5-5.1); SODIUM 137 MMOL/L (136-145)
[2019-04-22 07:20] LABS: BASOPHILS % (AUTO) 0.3 % (0.0-2.0); EOSINOPHILS % (AUTO) 0.5 % (0.0-3.0); HEMATOCRIT 30.5 % (37.0-47.0); HEMOGLOBIN 9.9 G/DL (12.0-16.0); LYMPHOCYTES % (AUTO) 14.6 % (20.0-45.0); MEAN CORPUSCULAR VOLUME 74 FL (80-99); MONOCYTES % (AUTO) 11.2 % (1.0-10.0); NEUTROPHILS % (AUTO) 73.4 % (45.0-75.0); PLATELET COUNT 189 K/UL (150-450); RED BLOOD COUNT 4.14 M/UL (4.20-5.40); RED CELL DISTRIBUTION WIDTH 13.9 % (11.6-14.8); WHITE BLOOD COUNT 9.1 K/UL (4.8-10.8)
[2019-04-22 07:50] LABS: % IRON SATURATION 4 % (15-50); IRON 12 ug/dL (50-175); TOTAL IRON BINDING CAPACITY 306 ug/dL (250-450)
[2019-04-22 08:00] VITALS: BP 118/77
[2019-04-22] MEDS: DiphenhydrAMINE 50mg/ml Inj IVP PRN ×2 (08:12→14:36)
[2019-04-22] MEDS: Heparin 5000 units/ml inj SUBQ SCH ×2 (08:15→21:06)
--- NOTE | 2019-04-22 09:49 | Diagnostic Imaging Report ---
EXAM: US Abdomen Complete CLINICAL HISTORY: ABD PAIN TECHNIQUE: Real-time ultrasound of the abdomen with image documentation. COMPARISON: No relevant prior studies available. FINDINGS: Liver: There is mild fatty infiltration of the liver which is mild enlarged measuring 17.3 cm in length. No intrahepatic bile duct dilation. Gallbladder: The gallbladder surgically absent. Common bile duct: Unremarkable as visualized. No stones. No dilation. Pancreas: Unremarkable as visualized. Kidneys: Unremarkable. No stones. No solid mass. No hydronephrosis. Spleen: Unremarkable. No splenomegaly. Aorta: Unremarkable. No aneurysm. Inferior vena cava: Unremarkable. IMPRESSION: No acute findings in the abdomen.
--- NOTE | 2019-04-22 10:59 | Infectious Diseases Prog Note ---
Assessment/Plan Assessment/Plan Assessment: Sepsis UTI/pyelonephritis R/o probable bacteremia -u/a wbc tnct, nit neg, leuk +2; ucx >100k E.coli (R bactrim, amp; otherwise S ) -Abd US: No acute findings in the abdomen. Fever; improving Leukocytosis; SP DM2 s/p cholecystectomy Plan: -Continue Levaquin #2/7-10 for pyelonephritis -d/c empiric aztreonam #3 -04/21 SP IV Vancomycin #1 -04/20 SP CIpro x1 -f/u cx -Monitor CBC/CMP, temperatures -Bcx x2 Thank you for this consultation. Will continue to follow along with you. Discussed with RN Subjective Allergies: Coded Allergies: AMPICILLIN (Verified Allergy, Unknown, hives, 04/21/19) Subjective Tm 100.1 leukocytosis resolved Objective Vital Signs Last 24 Hour Vital Signs Date Time Temp Pulse Resp B/P (MAP) Pulse Ox O2 Delivery O2 Flow Rate FiO2 04/22/19 09:00 Room Air 04/22/19 08:00 98.9 101 19 118/77 (91) 96 04/22/19 04:00 98.6 98 19 120/78 (92) 97 04/22/19 00:00 98.3 102 19 117/78 (91) 98 04/21/19 21:00 Room Air 04/21/19 20:04 100.1 04/21/19 20:00 100.1 97 19 121/82 (95) 99 04/21/19 16:00 98.0 94 20 100/60 (73) 99 04/21/19 12:00 98.1 81 18 95/67 (76) 98 Height (Feet): 5 Height (Inches): 4.00 Weight (Pounds): 150 Objective General Appearance: alert EENT: normal ENT inspection Neck: supple Cardiovascular: normal rate Respiratory/Chest: lungs clear Abdomen: normal bowel sounds, non tender, soft Extremities: non-tender Microbiology Date/Time Source Procedure Growth Status 04/20/19 18:20 Urine,Clean Catch Urine Culture - Final Escherichia Coli Complete Laboratory Tests Test 04/22/19 05:20 White Blood Count 9.1 K/UL (4.8-10.8) Red Blood Count 4.14 M/UL (4.20-5.40) L Hemoglobin 9.9 G/DL (12.0-16.0) L Hematocrit 30.5 % (37.0-47.0) L Mean Corpuscular Volume 74 FL (80-99) L Mean Corpuscular Hemoglobin 23.9 PG (27.0-31.0) L Mean Corpuscular Hemoglobin Concent 32.4 G/DL (32.0-36.0) Red Cell Distribution Width 13.9 % (11.6-14.8) Platelet Count 189 K/UL (150-450) Mean Platelet Volume 6.5 FL (6.5-10.1) Neutrophils (%) (Auto) 73.4 % (45.0-75.0) Lymphocytes (%) (Auto) 14.6 % (20.0-45.0) L Monocytes (%) (Auto) 11.2 % (1.0-10.0) H Eosinophils (%) (Auto) 0.5 % (0.0-3.0) Basophils (%) (Auto) 0.3 % (0.0-2.0) Sodium Level 137 MMOL/L (136-145) Potassium Level 3.3 MMOL/L (3.5-5.1) L Chloride Level 103 MMOL/L (98-107) Carbon Dioxide Level 24 MMOL/L (21-32) Anion Gap 10 mmol/L (5-15) Blood Urea Nitrogen 1 mg/dL (7-18) L Creatinine 0.4 MG/DL (0.55-1.30) L Estimat Glomerular Filtration Rate > 60 mL/min (>60) Glucose Level 249 MG/DL (74-106) H Calcium Level 7.8 MG/DL (8.5-10.1) L Phosphorus Level 2.7 MG/DL (2.5-4.9) Magnesium Level 1.6 MG/DL (1.8-2.4) L Iron Level 12 ug/dL (50-175) L Total Iron Binding Capacity 306 ug/dL (250-450) Percent Iron Saturation 4 % (15-50) L Unsaturated Iron Binding 294 ug/dL (112-346) Total Bilirubin 0.4 MG/DL (0.2-1.0) Aspartate Amino Transf (AST/SGOT) 43 U/L (15-37) H Alanine Aminotransferase (ALT/SGPT) 66 U/L (12-78) Alkaline Phosphatase 150 U/L (46-116) H Total Protein 6.8 G/DL (6.4-8.2) Albumin 2.2 G/DL (3.4-5.0) L Globulin 4.6 g/dL Albumin/Globulin Ratio 0.5 (1.0-2.7) L Amylase Level 16 U/L (25-115) L Lipase 65 U/L (73-393) L Vitamin B12 Level 1007 PG/ML (193-986) H Folate 14.5 NG/ML (8.6-58.9) Hepatitis A IgM Antibody Pending Hepatitis B Surface Antigen Pending Hepatitis B Core IgM Antibody Pending Hepatitis C Antibody Pending Current Medications Medications (Trade) Dose Ordered Sig/Shira Route PRN Reason Start Time Stop Time Status Last Admin Dose Admin Acetaminophen (Tylenol) 650 mg Q4H PRN ORAL fever 04/20/19 21:30 05/20/19 21:29 04/21/19 19:34 Albuterol/ Ipratropium (Albuterol/ Ipratropium) 3 ml Q4H PRN HHN Shortness of Breath 04/20/19 21:30 04/25/19 21:29 Aztreonam 1 gm/ Sodium Chloride 55 ml @ 110 mls/hr EVERY 8 HOURS IVPB 04/20/19 22:00 04/27/19 21:59 04/22/19 05:28 Dextrose (Dextrose 50%) 25 ml Q30M PRN IV Hypoglycemia 04/20/19 21:30 05/20/19 21:29 Dextrose (Dextrose 50%) 50 ml Q30M PRN IV Hypoglycemia 04/20/19 21:30 05/20/19 21:29 Diphenhydramine HCl (Benadryl) 25 mg Q6H PRN IVP Itching 04/21/19 11:15 05/21/19 11:14 04/22/19 08:12 Heparin Sodium (Porcine) (Heparin 5000 units/ml) 5,000 units EVERY 12 HOURS SUBQ 04/21/19 09:00 05/21/19 08:59 04/22/19 08:15 Insulin Aspart (NovoLOG) BEFORE MEALS AND HS SUBQ 04/21/19 06:30 05/21/19 06:29 04/22/19 06:28 Levofloxacin 100 ml @ 100 mls/hr Q24H IVPB 04/21/19 09:00 04/28/19 08:59 04/22/19 08:13 Morphine Sulfate (Morphine Sulfate) 4 mg Q4H PRN IVP For Pain 04/21/19 07:15 04/28/19 07:14 04/22/19 05:28 Nitroglycerin (Ntg) 0.4 mg Q5M PRN SL Prn Chest Pain 04/20/19 21:30 05/20/19 21:29 Ondansetron HCl (Zofran) 4 mg Q6H PRN IVP Nausea & Vomiting 04/20/19 21:30 05/20/19 21:29 04/22/19 05:28 Polyethylene Glycol (Miralax) 17 gm DAILYPRN PRN ORAL Constipation 04/20/19 21:30 05/20/19 21:29 Potassium Chloride/Sodium Chloride 1,000 ml @ 75 mls/hr [id number] IV 04/21/19 15:00 05/21/19 14:59 04/22/19 04:25 Temazepam (Restoril) 15 mg HSPRN PRN ORAL Insomnia 04/20/19 21:30 04/27/19 21:29 04/22/19 02:23 Lupe Valles M.D. Apr 22, 2019 10:59
[2019-04-22 12:00] VITALS: BP 127/84
[2019-04-22] MEDS: Miralax 17gm pkt ORAL PRN (12:48)
--- NOTE | 2019-04-22 12:48 | NUR ---
NURSE NOTES: given Miralax per patient request. Reminded patient for stool OB. Patient will call the nurse when stool is available.
[2019-04-22] MEDS ORDERED: Levemir Flexpen SUBQ SCH (14:00)
--- NOTE | 2019-04-22 15:15 | Internal Med Progress Note ---
Subjective Date of Service: Apr 22, 2019 Physician Name Juan R Dupree Attending Physician Arnoldo Alvarez MD Current Medications Medications (Trade) Dose Ordered Sig/Shira Route PRN Reason Start Time Stop Time Status Last Admin Dose Admin Acetaminophen (Tylenol) 650 mg Q4H PRN ORAL fever 04/20/19 21:30 05/20/19 21:29 04/21/19 19:34 Albuterol/ Ipratropium (Albuterol/ Ipratropium) 3 ml Q4H PRN HHN Shortness of Breath 04/20/19 21:30 04/25/19 21:29 Dextrose (Dextrose 50%) 25 ml Q30M PRN IV Hypoglycemia 04/22/19 13:00 05/22/19 12:59 Dextrose (Dextrose 50%) 50 ml Q30M PRN IV Hypoglycemia 04/22/19 13:00 05/22/19 12:59 Diphenhydramine HCl (Benadryl) 25 mg Q6H PRN IVP Itching 04/21/19 11:15 05/21/19 11:14 04/22/19 14:36 Heparin Sodium (Porcine) (Heparin 5000 units/ml) 5,000 units EVERY 12 HOURS SUBQ 04/21/19 09:00 05/21/19 08:59 04/22/19 08:15 Insulin Aspart (NovoLOG) BEFORE MEALS AND HS SUBQ 04/21/19 06:30 05/21/19 06:29 04/22/19 12:10 Insulin Aspart (NovoLOG) 6 units NOVOTIAC SUBQ 04/22/19 16:50 05/22/19 16:49 Insulin Detemir (Levemir) 20 units DAILY SUBQ 04/22/19 14:00 05/22/19 13:59 04/22/19 14:52 Levofloxacin 100 ml @ 100 mls/hr Q24H IVPB 04/21/19 09:00 04/28/19 08:59 04/22/19 08:13 Metformin HCl (Glucophage) 500 mg TIAC ORAL 04/22/19 16:30 05/22/19 16:29 Morphine Sulfate (Morphine Sulfate) 4 mg Q4H PRN IVP For Pain 04/21/19 07:15 04/28/19 07:14 04/22/19 11:06 Nitroglycerin (Ntg) 0.4 mg Q5M PRN SL Prn Chest Pain 04/20/19 21:30 05/20/19 21:29 Ondansetron HCl (Zofran) 4 mg Q6H PRN IVP Nausea & Vomiting 04/20/19 21:30 05/20/19 21:29 04/22/19 14:35 Polyethylene Glycol (Miralax) 17 gm DAILYPRN PRN ORAL Constipation 04/20/19 21:30 05/20/19 21:29 04/22/19 12:48 Potassium Chloride/Sodium Chloride 1,000 ml @ 75 mls/hr [id number] IV 04/21/19 15:00 05/21/19 14:59 04/22/19 04:25 Potassium Chloride (K-Dur) 40 meq ONCE ORAL 04/22/19 15:00 04/22/19 16:00 Temazepam (Restoril) 15 mg HSPRN PRN ORAL Insomnia 04/20/19 21:30 04/27/19 21:29 04/22/19 02:23 Allergies: Coded Allergies: AMPICILLIN (Verified Allergy, Unknown, hives, 04/21/19) ROS Limited/Unobtainable: No Constitutional: Reports: no symptoms HEENT: Reports: no symptoms Cardiovascular: Reports: no symptoms Respiratory: Reports: no symptoms Gastrointestinal/Abdominal: Reports: abdominal pain Genitourinary: Reports: no symptoms Neurologic/Psychiatric: Reports: no symptoms Subjective 43 YO F admitted with abdominal pain. Now UTI and pyelonephritis. Cover for Int Ethan-Dr Alvarez Objective Last Vital Signs Date Time Temp Pulse Resp B/P (MAP) Pulse Ox O2 Delivery O2 Flow Rate FiO2 04/22/19 12:00 98.6 98 19 127/84 (98) 98 04/22/19 09:00 Room Air Laboratory Tests Test 04/22/19 05:20 White Blood Count 9.1 K/UL (4.8-10.8) Red Blood Count 4.14 M/UL (4.20-5.40) L Hemoglobin 9.9 G/DL (12.0-16.0) L Hematocrit 30.5 % (37.0-47.0) L Mean Corpuscular Volume 74 FL (80-99) L Mean Corpuscular Hemoglobin 23.9 PG (27.0-31.0) L Mean Corpuscular Hemoglobin Concent 32.4 G/DL (32.0-36.0) Red Cell Distribution Width 13.9 % (11.6-14.8) Platelet Count 189 K/UL (150-450) Mean Platelet Volume 6.5 FL (6.5-10.1) Neutrophils (%) (Auto) 73.4 % (45.0-75.0) Lymphocytes (%) (Auto) 14.6 % (20.0-45.0) L Monocytes (%) (Auto) 11.2 % (1.0-10.0) H Eosinophils (%) (Auto) 0.5 % (0.0-3.0) Basophils (%) (Auto) 0.3 % (0.0-2.0) Sodium Level 137 MMOL/L (136-145) Potassium Level 3.3 MMOL/L (3.5-5.1) L Chloride Level 103 MMOL/L (98-107) Carbon Dioxide Level 24 MMOL/L (21-32) Anion Gap 10 mmol/L (5-15) Blood Urea Nitrogen 1 mg/dL (7-18) L Creatinine 0.4 MG/DL (0.55-1.30) L Estimat Glomerular Filtration Rate > 60 mL/min (>60) Glucose Level 249 MG/DL (74-106) H Hemoglobin A1c 11.1 % (4.3-6.0) H Calcium Level 7.8 MG/DL (8.5-10.1) L Phosphorus Level 2.7 MG/DL (2.5-4.9) Magnesium Level 1.6 MG/DL (1.8-2.4) L Iron Level 12 ug/dL (50-175) L Total Iron Binding Capacity 306 ug/dL (250-450) Percent Iron Saturation 4 % (15-50) L Unsaturated Iron Binding 294 ug/dL (112-346) Total Bilirubin 0.4 MG/DL (0.2-1.0) Aspartate Amino Transf (AST/SGOT) 43 U/L (15-37) H Alanine Aminotransferase (ALT/SGPT) 66 U/L (12-78) Alkaline Phosphatase 150 U/L (46-116) H Total Protein 6.8 G/DL (6.4-8.2) Albumin 2.2 G/DL (3.4-5.0) L Globulin 4.6 g/dL Albumin/Globulin Ratio 0.5 (1.0-2.7) L Amylase Level 16 U/L (25-115) L Lipase 65 U/L (73-393) L Vitamin B12 Level 1007 PG/ML (193-986) H Folate 14.5 NG/ML (8.6-58.9) Hepatitis A IgM Antibody Pending Hepatitis B Surface Antigen Pending Hepatitis B Core IgM Antibody Pending Hepatitis C Antibody Pending Microbiology Date/Time Source Procedure Growth Status 04/20/19 18:20 Urine,Clean Catch Urine Culture - Final Escherichia Coli Complete Intake and Output 04/21/19 04/22/19 19:00 07:00 Intake Total 800 ml 1220 ml Balance 800 ml 1220 ml Intake Oral 800 ml 250 ml IV Total 970 ml # Voids 2 5 Objective PHYSICAL EXAMINATION: GENERAL: The patient is awake and responsive, in no acute distress. HEAD AND NECK: Pupils are equal and reactive to light. Extraocular muscles intact. Neck was supple. No JVD. LUNGS: Good air entry. No wheezes or rales. HEART: S1, S2. Regular rate and rhythm. No gallops. ABDOMEN: Soft. Tenderness in lower quadrant. No rebound tenderness. No fluid shift. CVA tenderness in bilateral flank area. EXTREMITIES: No cyanosis, clubbing, or edema NEUROLOGIC: Cranial nerves II through XII grossly normal. Motor 5/5 in all extremities. Gait is intact. RECTAL: Refused and deferred. GENITOURINARY: Refused and deferred. PSYCHIATRIC: Mood and affect is intact. Assessment/Plan Assessment/Plan ASSESSMENT: 1. UTI/Pyelonephritis=E. Coli 2. Diabetes type 2, uncontrolled. 3. Nausea, vomiting, abnormal liver function, most likely secondary to the intra-abdominal infection. 4. Hypokalemia. 5. Dehydration. PLAN: 1. Admit the patient to medical floor. 2. antibiotics = Levaquin 3. Dr. Valles=Infectious Disease 4. Dr. Alvarez=GI, 5. Dr. Smallwood =Pulmonary. 6. Code status is Full code. DVT prophylaxis SCD. Juan R Dupree MD Apr 22, 2019 15:15
[2019-04-22 16:00] VITALS: BP 109/73
[2019-04-22] MEDS: metFORMIN 500mg tab ORAL SCH (17:19)
--- NOTE | 2019-04-22 17:25 | General Progress Note ---
Assessment/Plan Assessment/Plan: Assessment/Plan Assessment/Plan: N/V UTI pyelonephritis elevated LFTS anemia elevated lipase abx abd us - negative hepatitis serologies - pending repeat labs anemia work up - needs outpatient EGD/Colon will fu Subjective Allergies: Coded Allergies: AMPICILLIN (Verified Allergy, Unknown, hives, 04/21/19) Subjective Above noted tolerating PO no BM yet d/w patient re labs Objective Last 24 Hour Vital Signs Date Time Temp Pulse Resp B/P (MAP) Pulse Ox O2 Delivery O2 Flow Rate FiO2 04/22/19 16:00 99.7 96 19 109/73 (85) 98 04/22/19 12:00 98.6 98 19 127/84 (98) 98 04/22/19 09:00 Room Air 04/22/19 08:00 98.9 101 19 118/77 (91) 96 04/22/19 04:00 98.6 98 19 120/78 (92) 97 04/22/19 00:00 98.3 102 19 117/78 (91) 98 04/21/19 21:00 Room Air 04/21/19 20:04 100.1 04/21/19 20:00 100.1 97 19 121/82 (95) 99 Intake and Output 04/21/19 04/22/19 19:00 07:00 Intake Total 800 ml 1220 ml Balance 800 ml 1220 ml Intake Oral 800 ml 250 ml IV Total 970 ml # Voids 2 5 Laboratory Tests 04/22/19 05:20: White Blood Count 9.1, Red Blood Count 4.14L, Hemoglobin 9.9L, Hematocrit 30.5L , Mean Corpuscular Volume 74L, Mean Corpuscular Hemoglobin 23.9L, Mean Corpuscular Hemoglobin Concent 32.4, Red Cell Distribution Width 13.9, Platelet Count 189, Mean Platelet Volume 6.5, Neutrophils (%) (Auto) 73.4, Lymphocytes (% ) (Auto) 14.6L, Monocytes (%) (Auto) 11.2H, Eosinophils (%) (Auto) 0.5, Basophils (%) (Auto) 0.3, Sodium Level 137, Potassium Level 3.3L, Chloride Level 103, Carbon Dioxide Level 24, Anion Gap 10, Blood Urea Nitrogen 1L, Creatinine 0.4L, Estimat Glomerular Filtration Rate > 60, Glucose Level 249H, Hemoglobin A1c 11.1H, Calcium Level 7.8L, Phosphorus Level 2.7, Magnesium Level 1.6L, Iron Level 12L, Total Iron Binding Capacity 306, Percent Iron Saturation 4L, Unsaturated Iron Binding 294, Total Bilirubin 0.4, Aspartate Amino Transf ( AST/SGOT) 43H, Alanine Aminotransferase (ALT/SGPT) 66, Alkaline Phosphatase 150H , Total Protein 6.8, Albumin 2.2L, Globulin 4.6, Albumin/Globulin Ratio 0.5L, Amylase Level 16L, Lipase 65L, Vitamin B12 Level 1007H, Folate 14.5, Hepatitis A IgM Antibody [Pending], Hepatitis B Surface Antigen [Pending], Hepatitis B Core IgM Antibody [Pending], Hepatitis C Antibody [Pending] 04/22/19 16:00: Vancomycin Level Trough < 0.2L Height (Feet): 5 Height (Inches): 4.00 Weight (Pounds): 150 Eric Santoyo MD Apr 22, 2019 17:25
--- NOTE | 2019-04-22 19:00 | NUR ---
NURSE NOTES: Patient had bowel movements x2 and collected stool for OB.
--- NOTE | 2019-04-22 19:22 | NUR ---
HAND-OFF: Report given to Roula and endorsed plan of care.
--- NOTE | 2019-04-22 19:38 | NUR ---
NURSE NOTES: Received patient on bed, awake and verbally responsive. verbalized bearable pain. the previous nurse administered morphine. iv line on the left hand. respirations even and unlabored. no sob. the previous nurse collected stool.with bedside commode. reiterated to call or ask for assistance. bed locked and in lowest position. call light and light button within easy reach. will continue plan of care.
[2019-04-22 20:00] VITALS: BP 125/80
--- NOTE | 2019-04-22 20:45 | Consultation ---
DATE OF CONSULTATION: 04/22/2019 ENDOCRINOLOGY CONSULTATION CONSULTING PHYSICIAN: Shayan Young M.D. REFERRING PHYSICIAN: Arnoldo Alvarez M.D. REASON FOR CONSULTATION: Diabetes management. HISTORY OF PRESENT ILLNESS: This is a 43-year-old female with past medical history of gestational diabetes, which did not resolve after . The patient is taking metformin 500 b.i.d. as well as Lantus 10 units at bedtime, not really checking her glucose. The patient presented to the hospital 2 days ago with lower abdominal pain with radiation to the back, diagnosed with urinary tract infection. Glucose is running high over 200. Therefore, Endocrinology was consulted. PAST MEDICAL HISTORY: 1. Gestational diabetes. 2. Type 2 diabetes. PAST SURGICAL HISTORY: Cholecystectomy. MEDICATIONS: At home, metformin 500 mg b.i.d. SOCIAL HISTORY: No smoking, alcohol, or drug use. FAMILY HISTORY: Father was diabetic. REVIEW OF SYSTEMS: A 12-point review of systems was performed. The pertinent positives and negatives are mentioned in the history of present illness. LABORATORY VALUES: Sodium 137, potassium 3.3, chloride 103, bicarbonate 24, BUN 1, and creatinine 0.4. Glucose 249, it was as high as 431 on 04/20/2019. WBC is 9, hemoglobin 9, hematocrit 30, and platelets of 189,000. PHYSICAL EXAMINATION: HEENT: Pupils are equal and reactive to light. Sclerae are anicteric. NECK: No JVD. No thyromegaly. No bruit. LUNGS: Clear. HEART: Regular rate and rhythm. ABDOMEN: Positive bowel sounds. Soft. EXTREMITIES: No clubbing, cyanosis, or edema. DIAGNOSIS: 1. Urinary tract infection. 2. Diabetes, out of control. PLAN: 1. Start metformin 500 mg t.i.d. 2. Start NovoLog 6 units before each meal. 3. Start Levemir 20 units daily, first dose now. 4. NovoLog sliding scale before meals and at bedtime. 5. Check hemoglobin A1c. 6. Adjustment according to blood glucose values. Thank you, Dr. Alvarez, for the courtesy of this consultation. Shayan Young M.D. DR: LAURA/SN Valdovinos: 04/22/2019 13:01 JOB#: [id number] CC: DOMENIC
[2019-04-23] VITALS: BP 135/80
[2019-04-23] MEDS: Morphine Sulfate 4mg/ml Inj (IV USE ONLY) IVP PRN ×4 (00:04→22:14)
[2019-04-23] MEDS: DiphenhydrAMINE 50mg/ml Inj IVP PRN ×3 (00:04→18:59)
[2019-04-23 04:00] VITALS: BP 121/81
[2019-04-23] MEDS: metFORMIN 500mg tab ORAL SCH ×3 (06:01→17:13)
[2019-04-23] MEDS: NS w/KCl 40mEq 1,000 ML IV SCH ×2 (06:01→22:06)
[2019-04-23] MEDS: NovoLOG Insulin Flexpen SUBQ SCH ×7 (06:06→22:22)
[2019-04-23 06:41] LABS: BASOPHILS % (AUTO) 0.4 % (0.0-2.0); EOSINOPHILS % (AUTO) 0.7 % (0.0-3.0); HEMATOCRIT 30.1 % (37.0-47.0); HEMOGLOBIN 9.7 G/DL (12.0-16.0); LYMPHOCYTES % (AUTO) 26.8 % (20.0-45.0); MEAN CORPUSCULAR VOLUME 74 FL (80-99); PLATELET COUNT 193 K/UL (150-450); RED BLOOD COUNT 4.06 M/UL (4.20-5.40); RED CELL DISTRIBUTION WIDTH 13.6 % (11.6-14.8); WHITE BLOOD COUNT 6.2 K/UL (4.8-10.8)
[2019-04-23 06:53] LABS: ANION GAP 7 mmol/L (5-15); BLOOD UREA NITROGEN 1 mg/dL (7-18); CALCIUM 7.7 MG/DL (8.5-10.1); CARBON DIOXIDE 27 MMOL/L (21-32); CHLORIDE 104 MMOL/L (98-107); CREATININE 0.5 MG/DL (0.55-1.30); POTASSIUM 4.1 MMOL/L (3.5-5.1); SODIUM 137 MMOL/L (136-145)
--- NOTE | 2019-04-23 07:18 | General Progress Note ---
Assessment/Plan Problem List: (1) Diabetes mellitus ICD Codes: E11.9 - Type 2 diabetes mellitus without complications SNOMED: 72497696 (2) Hyperglycemia ICD Codes: R73.9 - Hyperglycemia, unspecified SNOMED: 29067633 (3) Pyelonephritis ICD Codes: N12 - Tubulo-interstitial nephritis, not specified as acute or chronic SNOMED: 95780748 Assessment/Plan: increase Levemir to 30 units daily increase Novolog to 10 units ac tid continue NISS ac / hs continue Metformin 500 mg tid Subjective Allergies: Coded Allergies: AMPICILLIN (Verified Allergy, Unknown, hives, 04/21/19) All Systems: reviewed and negative except above Subjective glucose values remained elevated despite addition of basal / bolus insulin regimen Item Value Date Time Bedside Blood Glucose 278 mg/dl H 04/23/19 0630 Bedside Blood Glucose 244 mg/dl H 04/22/19 2142 Bedside Blood Glucose 234 mg/dl H 04/22/19 1822 Bedside Blood Glucose 254 mg/dl H 04/22/19 1452 Bedside Blood Glucose 247 mg/dl H 04/22/19 0630 Objective Last 24 Hour Vital Signs Date Time Temp Pulse Resp B/P (MAP) Pulse Ox O2 Delivery O2 Flow Rate FiO2 04/23/19 04:00 98.9 97 19 121/81 (94) 97 04/23/19 00:00 99.2 99 20 135/80 (98) 97 04/22/19 21:00 Room Air 04/22/19 20:00 98.5 101 19 125/80 (95) 96 04/22/19 16:00 99.7 96 19 109/73 (85) 98 04/22/19 12:00 98.6 98 19 127/84 (98) 98 04/22/19 09:00 Room Air 04/22/19 08:00 98.9 101 19 118/77 (91) 96 Intake and Output 04/22/19 04/23/19 19:00 07:00 Intake Total 1350 ml 950 ml Balance 1350 ml 950 ml Intake Oral 500 ml 500 ml IV Total 850 ml 450 ml # Voids 5 5 # Bowel Movements 1 Laboratory Tests 04/22/19 16:00: Vancomycin Level Trough < 0.2L 04/23/19 05:15: White Blood Count 6.2, Red Blood Count 4.06L, Hemoglobin 9.7L, Hematocrit 30.1L , Mean Corpuscular Volume 74L, Mean Corpuscular Hemoglobin 23.8L, Mean Corpuscular Hemoglobin Concent 32.1, Red Cell Distribution Width 13.6, Platelet Count 193, Mean Platelet Volume 6.4L, Neutrophils (%) (Auto) 63.0, Lymphocytes ( %) (Auto) 26.8, Monocytes (%) (Auto) 9.0, Eosinophils (%) (Auto) 0.7, Basophils (%) (Auto) 0.4, Sodium Level 137, Potassium Level 4.1, Chloride Level 104, Carbon Dioxide Level 27, Anion Gap 7, Blood Urea Nitrogen 1L, Creatinine 0.5L, Estimat Glomerular Filtration Rate > 60, Glucose Level 285H, Calcium Level 7.7L Height (Feet): 5 Height (Inches): 4.00 Weight (Pounds): 150 General Appearance: no apparent distress Neck: non-tender Cardiovascular: normal rate Respiratory/Chest: lungs clear Abdomen: normal bowel sounds Objective Current Medications Medications (Trade) Dose Ordered Sig/Shira Route PRN Reason Start Time Stop Time Status Last Admin Dose Admin Acetaminophen (Tylenol) 650 mg Q4H PRN ORAL fever 04/20/19 21:30 05/20/19 21:29 04/21/19 19:34 Albuterol/ Ipratropium (Albuterol/ Ipratropium) 3 ml Q4H PRN HHN Shortness of Breath 04/20/19 21:30 04/25/19 21:29 Dextrose (Dextrose 50%) 25 ml Q30M PRN IV Hypoglycemia 04/22/19 13:00 05/22/19 12:59 Dextrose (Dextrose 50%) 50 ml Q30M PRN IV Hypoglycemia 04/22/19 13:00 05/22/19 12:59 Diphenhydramine HCl (Benadryl) 25 mg Q6H PRN IVP Itching 04/21/19 11:15 05/21/19 11:14 04/23/19 00:04 Heparin Sodium (Porcine) (Heparin 5000 units/ml) 5,000 units EVERY 12 HOURS SUBQ 04/21/19 09:00 05/21/19 08:59 04/22/19 21:06 Insulin Aspart (NovoLOG) BEFORE MEALS AND HS SUBQ 04/21/19 06:30 05/21/19 06:29 04/23/19 06:06 Insulin Aspart (NovoLOG) 6 units NOVOTIAC SUBQ 04/22/19 16:50 05/22/19 16:49 04/23/19 06:07 Insulin Detemir (Levemir) 20 units DAILY SUBQ 04/22/19 14:00 05/22/19 13:59 04/22/19 14:52 Levofloxacin 100 ml @ 100 mls/hr Q24H IVPB 04/21/19 09:00 04/28/19 08:59 04/22/19 08:13 Metformin HCl (Glucophage) 500 mg TIAC ORAL 04/22/19 16:30 05/22/19 16:29 04/23/19 06:01 Morphine Sulfate (Morphine Sulfate) 4 mg Q4H PRN IVP For Pain 04/21/19 07:15 04/28/19 07:14 04/23/19 00:04 Nitroglycerin (Ntg) 0.4 mg Q5M PRN SL Prn Chest Pain 04/20/19 21:30 05/20/19 21:29 Ondansetron HCl (Zofran) 4 mg Q6H PRN IVP Nausea & Vomiting 04/20/19 21:30 05/20/19 21:29 04/22/19 20:59 Polyethylene Glycol (Miralax) 17 gm DAILYPRN PRN ORAL Constipation 04/20/19 21:30 05/20/19 21:29 04/22/19 12:48 Potassium Chloride/Sodium Chloride 1,000 ml @ 75 mls/hr [id number] IV 04/21/19 15:00 05/21/19 14:59 04/23/19 06:01 Temazepam (Restoril) 15 mg HSPRN PRN ORAL Insomnia 04/20/19 21:30 04/27/19 21:29 04/22/19 02:23 Shayan Young MD Apr 23, 2019 07:18
--- NOTE | 2019-04-23 07:30 | NUR ---
NURSE NOTES: Patient is in bed asleep. Stable. Breathing is even and unlabored. No visible signs of distress noted. Patient is in bed in locked and lowest position with call light within reach. All safety measures provided. Will continue to monitor.
--- NOTE | 2019-04-23 07:30 | NUR ---
HAND-OFF: Report given to shirley perez.
[2019-04-23 08:00] VITALS: BP 119/65
[2019-04-23] MEDS: Heparin 5000 units/ml inj SUBQ SCH ×2 (08:56→22:22)
[2019-04-23] MEDS: Levemir Flexpen SUBQ SCH (08:56)
[2019-04-23 12:00] VITALS: BP 124/86
--- NOTE | 2019-04-23 14:45 | Internal Med Progress Note ---
Subjective Date of Service: Apr 23, 2019 Physician Name Juan R Dupree Attending Physician Arnoldo Alvarez MD Current Medications Medications (Trade) Dose Ordered Sig/Shira Route PRN Reason Start Time Stop Time Status Last Admin Dose Admin Acetaminophen (Tylenol) 650 mg Q4H PRN ORAL fever 04/20/19 21:30 05/20/19 21:29 04/21/19 19:34 Albuterol/ Ipratropium (Albuterol/ Ipratropium) 3 ml Q4H PRN HHN Shortness of Breath 04/20/19 21:30 04/25/19 21:29 Dextrose (Dextrose 50%) 25 ml Q30M PRN IV Hypoglycemia 04/22/19 13:00 05/22/19 12:59 Dextrose (Dextrose 50%) 50 ml Q30M PRN IV Hypoglycemia 04/22/19 13:00 05/22/19 12:59 Diphenhydramine HCl (Benadryl) 25 mg Q6H PRN IVP Itching 04/21/19 11:15 05/21/19 11:14 04/23/19 11:27 Heparin Sodium (Porcine) (Heparin 5000 units/ml) 5,000 units EVERY 12 HOURS SUBQ 04/21/19 09:00 05/21/19 08:59 04/23/19 08:56 Insulin Aspart (NovoLOG) BEFORE MEALS AND HS SUBQ 04/21/19 06:30 05/21/19 06:29 04/23/19 11:30 Insulin Aspart (NovoLOG) 10 units NOVOTIAC SUBQ 04/23/19 11:50 05/22/19 16:49 04/23/19 11:29 Insulin Detemir (Levemir) 30 units DAILY SUBQ 04/23/19 09:00 05/22/19 13:59 04/23/19 08:56 Levofloxacin 100 ml @ 100 mls/hr Q24H IVPB 04/21/19 09:00 04/28/19 08:59 04/23/19 08:54 Metformin HCl (Glucophage) 500 mg TIAC ORAL 04/22/19 16:30 05/22/19 16:29 04/23/19 11:25 Morphine Sulfate (Morphine Sulfate) 4 mg Q4H PRN IVP For Pain 04/21/19 07:15 04/28/19 07:14 04/23/19 10:41 Nitroglycerin (Ntg) 0.4 mg Q5M PRN SL Prn Chest Pain 04/20/19 21:30 05/20/19 21:29 Ondansetron HCl (Zofran) 4 mg Q6H PRN IVP Nausea & Vomiting 04/20/19 21:30 05/20/19 21:29 04/23/19 14:18 Polyethylene Glycol (Miralax) 17 gm DAILYPRN PRN ORAL Constipation 04/20/19 21:30 05/20/19 21:29 04/22/19 12:48 Potassium Chloride/Sodium Chloride 1,000 ml @ 75 mls/hr [id number] IV 04/21/19 15:00 05/21/19 14:59 04/23/19 06:01 Temazepam (Restoril) 15 mg HSPRN PRN ORAL Insomnia 04/20/19 21:30 04/27/19 21:29 04/22/19 02:23 Allergies: Coded Allergies: AMPICILLIN (Verified Allergy, Unknown, hives, 04/21/19) ROS Limited/Unobtainable: No Constitutional: Reports: no symptoms HEENT: Reports: no symptoms Cardiovascular: Reports: no symptoms Respiratory: Reports: no symptoms Gastrointestinal/Abdominal: Reports: abdominal pain Genitourinary: Reports: no symptoms Neurologic/Psychiatric: Reports: no symptoms Subjective 43 YO F admitted with abdominal pain. Now UTI and pyelonephritis. Cover for Int Ethan-Dr Alvarez Objective Last Vital Signs Date Time Temp Pulse Resp B/P (MAP) Pulse Ox O2 Delivery O2 Flow Rate FiO2 04/23/19 12:00 98.5 95 18 124/86 (99) 97 04/23/19 09:00 Room Air Laboratory Tests Test 04/22/19 16:00 04/23/19 05:15 Vancomycin Level Trough < 0.2 ug/mL (5.0-12.0) L White Blood Count 6.2 K/UL (4.8-10.8) Red Blood Count 4.06 M/UL (4.20-5.40) L Hemoglobin 9.7 G/DL (12.0-16.0) L Hematocrit 30.1 % (37.0-47.0) L Mean Corpuscular Volume 74 FL (80-99) L Mean Corpuscular Hemoglobin 23.8 PG (27.0-31.0) L Mean Corpuscular Hemoglobin Concent 32.1 G/DL (32.0-36.0) Red Cell Distribution Width 13.6 % (11.6-14.8) Platelet Count 193 K/UL (150-450) Mean Platelet Volume 6.4 FL (6.5-10.1) L Neutrophils (%) (Auto) 63.0 % (45.0-75.0) Lymphocytes (%) (Auto) 26.8 % (20.0-45.0) Monocytes (%) (Auto) 9.0 % (1.0-10.0) Eosinophils (%) (Auto) 0.7 % (0.0-3.0) Basophils (%) (Auto) 0.4 % (0.0-2.0) Sodium Level 137 MMOL/L (136-145) Potassium Level 4.1 MMOL/L (3.5-5.1) Chloride Level 104 MMOL/L (98-107) Carbon Dioxide Level 27 MMOL/L (21-32) Anion Gap 7 mmol/L (5-15) Blood Urea Nitrogen 1 mg/dL (7-18) L Creatinine 0.5 MG/DL (0.55-1.30) L Estimat Glomerular Filtration Rate > 60 mL/min (>60) Glucose Level 285 MG/DL (74-106) H Calcium Level 7.7 MG/DL (8.5-10.1) L Microbiology Date/Time Source Procedure Growth Status 04/20/19 18:20 Urine,Clean Catch Urine Culture - Final Escherichia Coli Complete Intake and Output 04/22/19 04/23/19 19:00 07:00 Intake Total 1350 ml 950 ml Balance 1350 ml 950 ml Intake Oral 500 ml 500 ml IV Total 850 ml 450 ml # Voids 5 5 # Bowel Movements 1 Objective PHYSICAL EXAMINATION: GENERAL: The patient is awake and responsive, in no acute distress. HEAD AND NECK: Pupils are equal and reactive to light. Extraocular muscles intact. Neck was supple. No JVD. LUNGS: Good air entry. No wheezes or rales. HEART: S1, S2. Regular rate and rhythm. No gallops. ABDOMEN: Soft. Tenderness in lower quadrant. No rebound tenderness. No fluid shift. CVA tenderness in bilateral flank area. EXTREMITIES: No cyanosis, clubbing, or edema NEUROLOGIC: Cranial nerves II through XII grossly normal. Motor 5/5 in all extremities. Gait is intact. RECTAL: Refused and deferred. GENITOURINARY: Refused and deferred. PSYCHIATRIC: Mood and affect is intact. Assessment/Plan Assessment/Plan ASSESSMENT: 1. UTI/Pyelonephritis=E. Coli 2. Diabetes type 2, uncontrolled. 3. Nausea, vomiting, abnormal liver function, most likely secondary to the intra-abdominal infection. 4. Hypokalemia. 5. Dehydration. PLAN: 1. Admit the patient to medical floor. 2. antibiotics = Levaquin 3. Dr. Valles=Infectious Disease 4. Dr. Alvarez=GI, 5. Dr. Smallwood =Pulmonary. 6. Code status is Full code. DVT prophylaxis SCD. Juan R Dupree MD Apr 23, 2019 14:44
[2019-04-23 16:00] VITALS: BP 130/82
--- NOTE | 2019-04-23 16:28 | General Progress Note ---
Assessment/Plan Assessment/Plan: Assessment/Plan Assessment/Plan: N/V UTI pyelonephritis elevated LFTS anemia elevated lipase abx abd us - negative hepatitis serologies - pending repeat labs anemia work up - needs outpatient EGD/Colon will fu Subjective Allergies: Coded Allergies: AMPICILLIN (Verified Allergy, Unknown, hives, 04/21/19) Subjective Above noted tolerating PO Objective Last 24 Hour Vital Signs Date Time Temp Pulse Resp B/P (MAP) Pulse Ox O2 Delivery O2 Flow Rate FiO2 04/23/19 12:00 98.5 95 18 124/86 (99) 97 04/23/19 09:00 Room Air 04/23/19 08:00 98.2 86 18 119/65 (83) 97 04/23/19 04:00 98.9 97 19 121/81 (94) 97 04/23/19 00:00 99.2 99 20 135/80 (98) 97 04/22/19 21:00 Room Air 04/22/19 20:00 98.5 101 19 125/80 (95) 96 Intake and Output 04/22/19 04/23/19 19:00 07:00 Intake Total 1350 ml 950 ml Balance 1350 ml 950 ml Intake Oral 500 ml 500 ml IV Total 850 ml 450 ml # Voids 5 5 # Bowel Movements 1 Laboratory Tests 04/23/19 05:15: White Blood Count 6.2, Red Blood Count 4.06L, Hemoglobin 9.7L, Hematocrit 30.1L , Mean Corpuscular Volume 74L, Mean Corpuscular Hemoglobin 23.8L, Mean Corpuscular Hemoglobin Concent 32.1, Red Cell Distribution Width 13.6, Platelet Count 193, Mean Platelet Volume 6.4L, Neutrophils (%) (Auto) 63.0, Lymphocytes ( %) (Auto) 26.8, Monocytes (%) (Auto) 9.0, Eosinophils (%) (Auto) 0.7, Basophils (%) (Auto) 0.4, Sodium Level 137, Potassium Level 4.1, Chloride Level 104, Carbon Dioxide Level 27, Anion Gap 7, Blood Urea Nitrogen 1L, Creatinine 0.5L, Estimat Glomerular Filtration Rate > 60, Glucose Level 285H, Calcium Level 7.7L Height (Feet): 5 Height (Inches): 4.00 Weight (Pounds): 150 Eric Santoyo MD Apr 23, 2019 16:28
--- NOTE | 2019-04-23 19:30 | NUR ---
HAND-OFF: Report given to Da SANCHEZ. Patient is stable.
[2019-04-23 20:00] VITALS: BP 117/76
[2019-04-24] VITALS (7 sets, daily range): BP systolic 123–158; BP diastolic 79–91
[2019-04-24] MEDS: DiphenhydrAMINE 50mg/ml Inj IVP PRN ×4 (01:49→23:08)
--- NOTE | 2019-04-24 07:01 | General Progress Note ---
Assessment/Plan Problem List: (1) Diabetes mellitus ICD Codes: E11.9 - Type 2 diabetes mellitus without complications SNOMED: 36083466 (2) Hyperglycemia ICD Codes: R73.9 - Hyperglycemia, unspecified SNOMED: 55997542 (3) Pyelonephritis ICD Codes: N12 - Tubulo-interstitial nephritis, not specified as acute or chronic SNOMED: 15821945 Assessment/Plan: continue Levemir 30 units daily continue Novolog 10 units ac tid continue NISS ac / hs continue Metformin 500 mg tid Subjective Allergies: Coded Allergies: AMPICILLIN (Verified Allergy, Unknown, hives, 04/21/19) All Systems: reviewed and negative except above Subjective glucose values are trending down Item Value Date Time Bedside Blood Glucose 222 mg/dl H 04/23/19 2222 Bedside Blood Glucose 192 mg/dl H 04/23/19 1713 Bedside Blood Glucose 264 mg/dl H 04/23/19 1130 Bedside Blood Glucose 278 mg/dl H 04/23/19 0856 Bedside Blood Glucose 278 mg/dl H 04/23/19 0630 Objective Last 24 Hour Vital Signs Date Time Temp Pulse Resp B/P (MAP) Pulse Ox O2 Delivery O2 Flow Rate FiO2 04/24/19 00:00 98.3 89 18 130/82 (98) 95 86 04/23/19 22:44 99.0 04/23/19 20:00 98.1 86 18 117/76 (90) 95 04/23/19 16:00 99.0 91 18 130/82 (98) 98 04/23/19 12:00 98.5 95 18 124/86 (99) 97 04/23/19 09:00 Room Air 04/23/19 08:00 98.2 86 18 119/65 (83) 97 Laboratory Tests 04/24/19 05:10: White Blood Count [Pending], Red Blood Count [Pending], Hemoglobin [Pending], Hematocrit [Pending], Mean Corpuscular Volume [Pending], Mean Corpuscular Hemoglobin [Pending], Mean Corpuscular Hemoglobin Concent [Pending], Red Cell Distribution Width [Pending], Platelet Count [Pending], Mean Platelet Volume [ Pending], Neutrophils (%) (Auto) [Pending], Lymphocytes (%) (Auto) [Pending], Monocytes (%) (Auto) [Pending], Eosinophils (%) (Auto) [Pending], Basophils (%) (Auto) [Pending], Sodium Level [Pending], Potassium Level [Pending], Chloride Level [Pending], Carbon Dioxide Level [Pending], Blood Urea Nitrogen [Pending], Creatinine [Pending], Estimat Glomerular Filtration Rate [Pending], Glucose Level [Pending], Calcium Level [Pending] Height (Feet): 5 Height (Inches): 4.00 Weight (Pounds): 150 General Appearance: no apparent distress Neck: normal alignment Cardiovascular: normal rate Respiratory/Chest: lungs clear Abdomen: normal bowel sounds Pelvis: normal external exam Objective Current Medications Medications (Trade) Dose Ordered Sig/Shira Route PRN Reason Start Time Stop Time Status Last Admin Dose Admin Acetaminophen (Tylenol) 650 mg Q4H PRN ORAL fever 04/20/19 21:30 05/20/19 21:29 04/21/19 19:34 Albuterol/ Ipratropium (Albuterol/ Ipratropium) 3 ml Q4H PRN HHN Shortness of Breath 04/20/19 21:30 04/25/19 21:29 Dextrose (Dextrose 50%) 25 ml Q30M PRN IV Hypoglycemia 04/22/19 13:00 05/22/19 12:59 Dextrose (Dextrose 50%) 50 ml Q30M PRN IV Hypoglycemia 04/22/19 13:00 05/22/19 12:59 Diphenhydramine HCl (Benadryl) 25 mg Q6H PRN IVP Itching 04/21/19 11:15 05/21/19 11:14 04/24/19 01:49 Heparin Sodium (Porcine) (Heparin 5000 units/ml) 5,000 units EVERY 12 HOURS SUBQ 04/21/19 09:00 05/21/19 08:59 04/23/19 22:22 Insulin Aspart (NovoLOG) BEFORE MEALS AND HS SUBQ 04/21/19 06:30 05/21/19 06:29 04/23/19 22:22 Insulin Aspart (NovoLOG) 10 units NOVOTIAC SUBQ 04/23/19 11:50 05/22/19 16:49 04/23/19 17:13 Insulin Detemir (Levemir) 30 units DAILY SUBQ 04/23/19 09:00 05/22/19 13:59 04/23/19 08:56 Levofloxacin 100 ml @ 100 mls/hr Q24H IVPB 04/21/19 09:00 04/28/19 08:59 04/23/19 08:54 Metformin HCl (Glucophage) 500 mg TIAC ORAL 04/22/19 16:30 05/22/19 16:29 04/23/19 17:13 Morphine Sulfate (Morphine Sulfate) 4 mg Q4H PRN IVP For Pain 04/21/19 07:15 04/28/19 07:14 04/23/19 22:14 Nitroglycerin (Ntg) 0.4 mg Q5M PRN SL Prn Chest Pain 04/20/19 21:30 05/20/19 21:29 Ondansetron HCl (Zofran) 4 mg Q6H PRN IVP Nausea & Vomiting 04/20/19 21:30 05/20/19 21:29 04/23/19 14:18 Polyethylene Glycol (Miralax) 17 gm DAILYPRN PRN ORAL Constipation 04/20/19 21:30 05/20/19 21:29 04/22/19 12:48 Potassium Chloride/Sodium Chloride 1,000 ml @ 75 mls/hr [id number] IV 04/21/19 15:00 05/21/19 14:59 04/23/19 22:06 Temazepam (Restoril) 15 mg HSPRN PRN ORAL Insomnia 04/20/19 21:30 04/27/19 21:29 04/22/19 02:23 Shayan Young MD Apr 24, 2019 07:01
[2019-04-24 07:02] LABS: ANION GAP 9 mmol/L (5-15); CALCIUM 8.8 MG/DL (8.5-10.1); CARBON DIOXIDE 27 MMOL/L (21-32); CHLORIDE 101 MMOL/L (98-107); CREATININE 0.5 MG/DL (0.55-1.30); SODIUM 137 MMOL/L (136-145)
[2019-04-24 07:13] LABS: HEMATOCRIT 33.2 % (37.0-47.0); HEMOGLOBIN 10.8 G/DL (12.0-16.0); MEAN CORPUSCULAR VOLUME 74 FL (80-99); NEUTROPHILS % (AUTO) 55.9 % (45.0-75.0); PLATELET COUNT 237 K/UL (150-450); RED CELL DISTRIBUTION WIDTH 14.2 % (11.6-14.8)
[2019-04-24 07:14] LABS: BASOPHILS % (AUTO) 0.4 % (0.0-2.0); EOSINOPHILS % (AUTO) 1.8 % (0.0-3.0); LYMPHOCYTES % (AUTO) 31.4 % (20.0-45.0); MONOCYTES % (AUTO) 10.5 % (1.0-10.0)
[2019-04-24 07:18] LABS: BLOOD UREA NITROGEN 3 mg/dL (7-18)
--- NOTE | 2019-04-24 07:30 | NUR ---
NURSE NOTES: Report received from Luke Roberson RN. Patient awake and alert x 4. Patient stated that pain medication given by previous nurse help bring down pain level to a 1/10. Patient has no other complaints at this time. Patient noted to have a 20 carlita IV in left forearm with fluids running per MD orders. Will continue to follow plan of care.
--- NOTE | 2019-04-24 07:30 | NUR ---
HAND-OFF: Report given to MINDA SANCHEZ.
[2019-04-24] MEDS: Morphine Sulfate 4mg/ml Inj (IV USE ONLY) IVP PRN ×3 (07:50→20:09)
[2019-04-24] MEDS: metFORMIN 500mg tab ORAL SCH ×3 (07:50→16:45)
[2019-04-24] MEDS: NovoLOG Insulin Flexpen SUBQ SCH ×8 (07:53→20:12)
[2019-04-24] MEDS: NS w/KCl 40mEq 1,000 ML IV SCH ×2 (08:42→22:19)
[2019-04-24] MEDS: Heparin 5000 units/ml inj SUBQ SCH ×2 (08:47→20:10)
[2019-04-24] MEDS: Levemir Flexpen SUBQ SCH (08:48)
--- NOTE | 2019-04-24 09:17 | General Progress Note ---
Assessment/Plan Assessment/Plan: Assessment/Plan Assessment/Plan: N/V UTI pyelonephritis elevated LFTS anemia elevated lipase abx abd us - negative hepatitis serologies - neg repeat labs anemia work up - needs outpatient EGD/Colon will fu Subjective ROS Limited/Unobtainable: Yes Allergies: Coded Allergies: AMPICILLIN (Verified Allergy, Unknown, hives, 04/21/19) Objective Last 24 Hour Vital Signs Date Time Temp Pulse Resp B/P (MAP) Pulse Ox O2 Delivery O2 Flow Rate FiO2 04/24/19 08:00 97.9 106 18 131/79 (96) 97 86 04/24/19 04:00 98.7 97 18 135/80 (98) 98 04/24/19 00:00 98.3 89 18 130/82 (98) 95 86 04/23/19 22:44 99.0 04/23/19 20:00 98.1 86 18 117/76 (90) 95 04/23/19 16:00 99.0 91 18 130/82 (98) 98 04/23/19 12:00 98.5 95 18 124/86 (99) 97 Laboratory Tests 04/24/19 05:10: White Blood Count 7.0, Red Blood Count 4.50, Hemoglobin 10.8L, Hematocrit 33.2L , Mean Corpuscular Volume 74L, Mean Corpuscular Hemoglobin 24.0L, Mean Corpuscular Hemoglobin Concent 32.6, Red Cell Distribution Width 14.2, Platelet Count 237, Mean Platelet Volume 6.0L, Neutrophils (%) (Auto) 55.9, Lymphocytes ( %) (Auto) 31.4, Monocytes (%) (Auto) 10.5H, Eosinophils (%) (Auto) 1.8, Basophils (%) (Auto) 0.4, Sodium Level 137, Potassium Level 4.0, Chloride Level 101, Carbon Dioxide Level 27, Anion Gap 9, Blood Urea Nitrogen 3L, Creatinine 0.5L, Estimat Glomerular Filtration Rate > 60, Glucose Level 226H, Calcium Level 8.8 Height (Feet): 5 Height (Inches): 4.00 Weight (Pounds): 150 General Appearance: no apparent distress EENT: normal ENT inspection Neck: supple Cardiovascular: normal rate Respiratory/Chest: decreased breath sounds Abdomen: normal bowel sounds, non tender, soft Extremities: non-tender Vosoghi,Roni MD Apr 24, 2019 09:17
--- NOTE | 2019-04-24 10:50 | NUR ---
*-* INSURANCE *-* ALL AVAILABLE CLINICALS AND REVIEWS HAVE BEEN FAXED TO: ANNELIESE RUIZ# [id number] F:[phone]
--- NOTE | 2019-04-24 13:33 | Infectious Diseases Prog Note ---
Assessment/Plan Assessment/Plan Assessment: Sepsis UTI/pyelonephritis -04/22 Bcx N TD -u/a wbc tnct, nit neg, leuk +2; ucx >100k E.coli (R bactrim, amp; otherwise S ) -Abd US: No acute findings in the abdomen. Fever; SP Leukocytosis; SP DM2 s/p cholecystectomy Plan: -Continue Levaquin #/7-10 for pyelonephritis -04/22 SP aztreonam #3 -04/21 SP IV Vancomycin # -04/20 SP CIpro x1 -f/u cx -Monitor CBC/CMP, temperatures -f/u Bcx x2 Thank you for this consultation. Will continue to follow along with you. Discussed with RN Subjective Allergies: Coded Allergies: AMPICILLIN (Verified Allergy, Unknown, hives, 04/21/19) Subjective afebrile >48hrs no leukocytosis Bcx NTD Objective Vital Signs Last 24 Hour Vital Signs Date Time Temp Pulse Resp B/P (MAP) Pulse Ox O2 Delivery O2 Flow Rate FiO2 04/24/19 12:00 98.5 86 18 125/81 (96) 98 86 04/24/19 11:44 84 16 97 Room Air 21 04/24/19 09:00 Room Air 04/24/19 08:00 97.9 106 18 131/79 (96) 97 86 04/24/19 04:00 98.7 97 18 135/80 (98) 98 04/24/19 00:00 98.3 89 18 130/82 (98) 95 86 04/23/19 22:44 99.0 04/23/19 21:00 Room Air 04/23/19 20:00 98.1 86 18 117/76 (90) 95 04/23/19 16:00 99.0 91 18 130/82 (98) 98 Height (Feet): 5 Height (Inches): 4.00 Weight (Pounds): 150 Objective General Appearance: alert EENT: normal ENT inspection Neck: supple Cardiovascular: normal rate Respiratory/Chest: lungs clear Abdomen: normal bowel sounds, non tender, soft Extremities: non-tender Microbiology Date/Time Source Procedure Growth Status 04/22/19 12:00 Blood Blood Culture - Preliminary NO GROWTH AFTER 24 HOURS Resulted 04/22/19 11:15 Blood Blood Culture - Preliminary NO GROWTH AFTER 24 HOURS Resulted Laboratory Tests Test 04/24/19 05:10 White Blood Count 7.0 K/UL (4.8-10.8) Red Blood Count 4.50 M/UL (4.20-5.40) Hemoglobin 10.8 G/DL (12.0-16.0) L Hematocrit 33.2 % (37.0-47.0) L Mean Corpuscular Volume 74 FL (80-99) L Mean Corpuscular Hemoglobin 24.0 PG (27.0-31.0) L Mean Corpuscular Hemoglobin Concent 32.6 G/DL (32.0-36.0) Red Cell Distribution Width 14.2 % (11.6-14.8) Platelet Count 237 K/UL (150-450) Mean Platelet Volume 6.0 FL (6.5-10.1) L Neutrophils (%) (Auto) 55.9 % (45.0-75.0) Lymphocytes (%) (Auto) 31.4 % (20.0-45.0) Monocytes (%) (Auto) 10.5 % (1.0-10.0) H Eosinophils (%) (Auto) 1.8 % (0.0-3.0) Basophils (%) (Auto) 0.4 % (0.0-2.0) Sodium Level 137 MMOL/L (136-145) Potassium Level 4.0 MMOL/L (3.5-5.1) Chloride Level 101 MMOL/L (98-107) Carbon Dioxide Level 27 MMOL/L (21-32) Anion Gap 9 mmol/L (5-15) Blood Urea Nitrogen 3 mg/dL (7-18) L Creatinine 0.5 MG/DL (0.55-1.30) L Estimat Glomerular Filtration Rate > 60 mL/min (>60) Glucose Level 226 MG/DL (74-106) H Calcium Level 8.8 MG/DL (8.5-10.1) Current Medications Medications (Trade) Dose Ordered Sig/Shira Route PRN Reason Start Time Stop Time Status Last Admin Dose Admin Acetaminophen (Tylenol) 650 mg Q4H PRN ORAL fever 04/20/19 21:30 05/20/19 21:29 04/21/19 19:34 Albuterol/ Ipratropium (Albuterol/ Ipratropium) 3 ml Q4H PRN HHN Shortness of Breath 04/20/19 21:30 04/25/19 21:29 Dextrose (Dextrose 50%) 25 ml Q30M PRN IV Hypoglycemia 04/22/19 13:00 05/22/19 12:59 Dextrose (Dextrose 50%) 50 ml Q30M PRN IV Hypoglycemia 04/22/19 13:00 05/22/19 12:59 Diphenhydramine HCl (Benadryl) 25 mg Q6H PRN IVP Itching 04/21/19 11:15 05/21/19 11:14 04/24/19 08:42 Heparin Sodium (Porcine) (Heparin 5000 units/ml) 5,000 units EVERY 12 HOURS SUBQ 04/21/19 09:00 05/21/19 08:59 04/24/19 08:47 Insulin Aspart (NovoLOG) BEFORE MEALS AND HS SUBQ 04/21/19 06:30 05/21/19 06:29 04/24/19 12:26 Insulin Aspart (NovoLOG) 10 units NOVOTIAC SUBQ 04/23/19 11:50 05/22/19 16:49 04/24/19 12:25 Insulin Detemir (Levemir) 30 units DAILY SUBQ 04/23/19 09:00 05/22/19 13:59 04/24/19 08:48 Levofloxacin 100 ml @ 100 mls/hr Q24H IVPB 04/21/19 09:00 04/28/19 08:59 04/24/19 08:46 Metformin HCl (Glucophage) 500 mg TIAC ORAL 04/22/19 16:30 05/22/19 16:29 04/24/19 12:24 Morphine Sulfate (Morphine Sulfate) 4 mg Q4H PRN IVP For Pain 04/21/19 07:15 04/28/19 07:14 04/24/19 12:27 Nitroglycerin (Ntg) 0.4 mg Q5M PRN SL Prn Chest Pain 04/20/19 21:30 05/20/19 21:29 Ondansetron HCl (Zofran) 4 mg Q6H PRN IVP Nausea & Vomiting 04/20/19 21:30 05/20/19 21:29 04/24/19 10:27 Polyethylene Glycol (Miralax) 17 gm DAILYPRN PRN ORAL Constipation 04/20/19 21:30 05/20/19 21:29 04/22/19 12:48 Potassium Chloride/Sodium Chloride 1,000 ml @ 75 mls/hr [id number] IV 04/21/19 15:00 05/21/19 14:59 04/24/19 08:42 Temazepam (Restoril) 15 mg HSPRN PRN ORAL Insomnia 04/20/19 21:30 04/27/19 21:29 04/22/19 02:23 Lupe Valles M.D. Apr 24, 2019 13:33
--- NOTE | 2019-04-24 14:10 | NUR ---
RD ASSESSMENT & RECOMMENDATIONS SEE CARE ACTIVITY FOR COMPLETE ASSESSMENT DAILY ESTIMATED NEEDS: Needs based on DM, 58kg ABW 25-30 kcals/kg 6579-4574 total kcals 1-1.5 g protein/kg 58-87 g total protein 25-30 mL/kg 5479-5887 total fluid mLs NUTRITION DIAGNOSIS: Altered nutrition related lab values r/t diabetes as evidenced by A1C 11.1, elev BG on adm 431, Uglu 4+ on adm. [facility] PO DIET RECOMMENDATIONS: REC DIET CHANGE TO [facility] LOW ADDITIONAL RECOMMENDATIONS: 1) Diet change as above for improved glycemic control. 2) Encourage PM snack to prevent AM hypoglycemia 3) Monitor POC w. variable po intake 4) B-complex qdaily
[2019-04-24] MEDS: Miralax 17gm pkt ORAL PRN (15:12)
--- NOTE | 2019-04-24 15:58 | NUR ---
CASE MANAGEMENT: REVIEW 04/22/2019 SI:UTI/PYELONEPHRITIS . HYPOKALEMIA . FEVER 99.7 96 19 109/73 98% ON RA H/H 9.9/30.5 K+3.3 BUN 1 CREAT 0.4 BG 249 CA+7.8 MG 1.6 ALK-PHOS 150 IS:IV AZTREONAM Q8HR IV LEVOFLOXACIN Q24HR HEPARIN SQ BID IV KCL @75ML/HR IV MORPHINE SULFATE Q4HR/PRN IV ZOFRAN Q6HR/PRN NOVOLOG SQ AC&HS LEVEMIR SQ QD TYLENOL PO Q4HR/PRN \: 3E MED SURG UNIT DCP: HOME WHEN STABLE CASE MANAGEMENT: REVIEW 04/23/2019 SI:UTI/PYELONEPHRITIS . HYPOKALEMIA . FEVER 99.0 91 18 130/82 98% ON RA H/H 9.7/30.1 BUN 1 BG 285 CA+7.7 IS:IV LEVOFLOXACIN Q24HR HEPARIN SQ BID IV KCL @75ML/HR IV MORPHINE SULFATE Q4HR/PRN IV ZOFRAN Q6HR/PRN NOVOLOG SQ AC&HS LEVEMIR SQ QD TYLENOL PO Q4HR/PRN \: 3E MED SURG UNIT DCP: HOME WHEN STABLE CASE MANAGEMENT: REVIEW 04/24/2019 SI:UTI/PYELONEPHRITIS . HYPOKALEMIA . FEVER 98.5 86 18 125/81 98% ON RA H/H 10.8/33.2 BUN 3 CREAT 0.5 BG 226 IS:IV LEVOFLOXACIN Q24HR HEPARIN SQ BID IV KCL @75ML/HR IV MORPHINE SULFATE Q4HR/PRN IV ZOFRAN Q6HR/PRN NOVOLOG SQ AC&HS LEVEMIR SQ QD TYLENOL PO Q4HR/PRN \: 3E MED SURG UNIT DCP: HOME WHEN STABLE PLAN: CHECK LABS IN AM
--- NOTE | 2019-04-24 19:00 | NUR ---
NURSE NOTES: Patient discharge home with home health services with [facility]. Patient discharged with mother. Patient sent home with own wound vac and set home with all supplies needed. Transferred to patient to new wound vac and ensured proper function. Ensured patient had prescription and all supplies needed. Ensured patient had number to [facility]. IV and name band removed. Patient left care in stable condition. Addendum: 04/24/19 at 2021 by Fito Yepez RN wrong patient.
--- NOTE | 2019-04-24 19:04 | Internal Med Progress Note ---
Subjective Date of Service: Apr 24, 2019 Physician Name Juan R Dupree Attending Physician Arnoldo Alvarez MD Current Medications Medications (Trade) Dose Ordered Sig/Shira Route PRN Reason Start Time Stop Time Status Last Admin Dose Admin Acetaminophen (Tylenol) 650 mg Q4H PRN ORAL fever 04/20/19 21:30 05/20/19 21:29 04/21/19 19:34 Albuterol/ Ipratropium (Albuterol/ Ipratropium) 3 ml Q4H PRN HHN Shortness of Breath 04/20/19 21:30 04/25/19 21:29 Dextrose (Dextrose 50%) 25 ml Q30M PRN IV Hypoglycemia 04/22/19 13:00 05/22/19 12:59 Dextrose (Dextrose 50%) 50 ml Q30M PRN IV Hypoglycemia 04/22/19 13:00 05/22/19 12:59 Diphenhydramine HCl (Benadryl) 25 mg Q6H PRN IVP Itching 04/21/19 11:15 05/21/19 11:14 04/24/19 16:45 Heparin Sodium (Porcine) (Heparin 5000 units/ml) 5,000 units EVERY 12 HOURS SUBQ 04/21/19 09:00 05/21/19 08:59 04/24/19 08:47 Insulin Aspart (NovoLOG) BEFORE MEALS AND HS SUBQ 04/21/19 06:30 05/21/19 06:29 04/24/19 12:26 Insulin Aspart (NovoLOG) 10 units NOVOTIAC SUBQ 04/23/19 11:50 05/22/19 16:49 04/24/19 12:25 Insulin Detemir (Levemir) 30 units DAILY SUBQ 04/23/19 09:00 05/22/19 13:59 04/24/19 08:48 Levofloxacin (Levaquin) 500 mg DAILY ORAL 04/25/19 09:00 05/02/19 08:59 Metformin HCl (Glucophage) 500 mg TIAC ORAL 04/22/19 16:30 05/22/19 16:29 04/24/19 16:45 Morphine Sulfate (Morphine Sulfate) 4 mg Q4H PRN IVP For Pain 04/21/19 07:15 04/28/19 07:14 04/24/19 12:27 Nitroglycerin (Ntg) 0.4 mg Q5M PRN SL Prn Chest Pain 04/20/19 21:30 05/20/19 21:29 Ondansetron HCl (Zofran) 4 mg Q6H PRN IVP Nausea & Vomiting 04/20/19 21:30 05/20/19 21:29 04/24/19 10:27 Polyethylene Glycol (Miralax) 17 gm DAILYPRN PRN ORAL Constipation 04/20/19 21:30 05/20/19 21:29 04/24/19 15:12 Potassium Chloride/Sodium Chloride 1,000 ml @ 75 mls/hr [id number] IV 04/21/19 15:00 05/21/19 14:59 04/24/19 08:42 Temazepam (Restoril) 15 mg HSPRN PRN ORAL Insomnia 04/20/19 21:30 04/27/19 21:29 04/22/19 02:23 Allergies: Coded Allergies: AMPICILLIN (Verified Allergy, Unknown, hives, 04/21/19) ROS Limited/Unobtainable: No Constitutional: Reports: no symptoms HEENT: Reports: no symptoms Cardiovascular: Reports: no symptoms Respiratory: Reports: no symptoms Gastrointestinal/Abdominal: Reports: abdominal pain Genitourinary: Reports: no symptoms Neurologic/Psychiatric: Reports: no symptoms Subjective 43 YO F admitted with abdominal pain. Now UTI and pyelonephritis. Cover for Int Ethan-Dr Alvarez Objective Last Vital Signs Date Time Temp Pulse Resp B/P (MAP) Pulse Ox O2 Delivery O2 Flow Rate FiO2 04/24/19 16:00 98.5 72 17 140/80 (100) 98 04/24/19 11:44 Room Air 21 Laboratory Tests Test 04/24/19 05:10 White Blood Count 7.0 K/UL (4.8-10.8) Red Blood Count 4.50 M/UL (4.20-5.40) Hemoglobin 10.8 G/DL (12.0-16.0) L Hematocrit 33.2 % (37.0-47.0) L Mean Corpuscular Volume 74 FL (80-99) L Mean Corpuscular Hemoglobin 24.0 PG (27.0-31.0) L Mean Corpuscular Hemoglobin Concent 32.6 G/DL (32.0-36.0) Red Cell Distribution Width 14.2 % (11.6-14.8) Platelet Count 237 K/UL (150-450) Mean Platelet Volume 6.0 FL (6.5-10.1) L Neutrophils (%) (Auto) 55.9 % (45.0-75.0) Lymphocytes (%) (Auto) 31.4 % (20.0-45.0) Monocytes (%) (Auto) 10.5 % (1.0-10.0) H Eosinophils (%) (Auto) 1.8 % (0.0-3.0) Basophils (%) (Auto) 0.4 % (0.0-2.0) Sodium Level 137 MMOL/L (136-145) Potassium Level 4.0 MMOL/L (3.5-5.1) Chloride Level 101 MMOL/L (98-107) Carbon Dioxide Level 27 MMOL/L (21-32) Anion Gap 9 mmol/L (5-15) Blood Urea Nitrogen 3 mg/dL (7-18) L Creatinine 0.5 MG/DL (0.55-1.30) L Estimat Glomerular Filtration Rate > 60 mL/min (>60) Glucose Level 226 MG/DL (74-106) H Calcium Level 8.8 MG/DL (8.5-10.1) Microbiology Date/Time Source Procedure Growth Status 04/22/19 12:00 Blood Blood Culture - Preliminary NO GROWTH AFTER 24 HOURS Resulted 04/22/19 11:15 Blood Blood Culture - Preliminary NO GROWTH AFTER 24 HOURS Resulted Intake and Output 04/23/19 04/24/19 18:59 06:59 Intake Total 500 ml Balance 500 ml Intake Oral 500 ml # Voids 3 Objective PHYSICAL EXAMINATION: GENERAL: The patient is awake and responsive, in no acute distress. HEAD AND NECK: Pupils are equal and reactive to light. Extraocular muscles intact. Neck was supple. No JVD. LUNGS: Good air entry. No wheezes or rales. HEART: S1, S2. Regular rate and rhythm. No gallops. ABDOMEN: Soft. Tenderness in lower quadrant. No rebound tenderness. No fluid shift. CVA tenderness in bilateral flank area. EXTREMITIES: No cyanosis, clubbing, or edema NEUROLOGIC: Cranial nerves II through XII grossly normal. Motor 5/5 in all extremities. Gait is intact. RECTAL: Refused and deferred. GENITOURINARY: Refused and deferred. PSYCHIATRIC: Mood and affect is intact. Assessment/Plan Assessment/Plan ASSESSMENT: 1. UTI/Pyelonephritis=E. Coli 2. Diabetes type 2, uncontrolled. 3. Nausea, vomiting, abnormal liver function, most likely secondary to the intra-abdominal infection. 4. Hypokalemia. 5. Dehydration. PLAN: 1. Admit the patient to medical floor. 2. antibiotics = Levaquin 3. Dr. Valles=Infectious Disease 4. Dr. Alvarez=GI, 5. Dr. Smallwood =Pulmonary. 6. Code status is Full code. DVT prophylaxis SCD. 7. Discharge planning Juan R Dupree MD Apr 24, 2019 19:04
--- NOTE | 2019-04-24 19:40 | NUR ---
NURSE NOTES: Received pt from LAURA Payton. AAO x 4, on room air. IV site intact and running IVF. Pt c/o pain 9/10 on L flank. No acute distress noted. Family is at bedside. Bed locked, lowest position, side rails up, call light within reach. will continue to monitor.
[2019-04-25 04:00] VITALS: BP 126/68
[2019-04-25] MEDS: Morphine Sulfate 4mg/ml Inj (IV USE ONLY) IVP PRN ×3 (04:45→16:51)
[2019-04-25 05:29] LABS: ALANINE AMINOTRANSFERASE 64 U/L (12-78); ALBUMIN 2.3 G/DL (3.4-5.0); ALBUMIN/GLOBULIN RATIO 0.5 (1.0-2.7); ALKALINE PHOSPHATASE 262 U/L (46-116); AMYLASE 29 U/L (25-115); ANION GAP 8 mmol/L (5-15); ASPARTATE AMINO TRANSFERASE 46 U/L (15-37); BILIRUBIN,TOTAL 0.2 MG/DL (0.2-1.0); BLOOD UREA NITROGEN 5 mg/dL (7-18); CARBON DIOXIDE 29 MMOL/L (21-32); CHLORIDE 100 MMOL/L (98-107); CREATININE 0.5 MG/DL (0.55-1.30); SODIUM 137 MMOL/L (136-145)
[2019-04-25 05:35] LABS: BASOPHILS % (AUTO) 0.6 % (0.0-2.0); EOSINOPHILS % (AUTO) 2.4 % (0.0-3.0); HEMATOCRIT 33.8 % (37.0-47.0); LYMPHOCYTES % (AUTO) 35.8 % (20.0-45.0); MEAN CORPUSCULAR VOLUME 73 FL (80-99); MONOCYTES % (AUTO) 11.9 % (1.0-10.0); NEUTROPHILS % (AUTO) 49.3 % (45.0-75.0); PLATELET COUNT 286 K/UL (150-450); RED BLOOD COUNT 4.61 M/UL (4.20-5.40); WHITE BLOOD COUNT 6.2 K/UL (4.8-10.8)
[2019-04-25] MEDS: metFORMIN 500mg tab ORAL SCH ×3 (05:39→16:50)
[2019-04-25] MEDS: NovoLOG Insulin Flexpen SUBQ SCH ×6 (05:39→17:13)
[2019-04-25] MEDS: DiphenhydrAMINE 50mg/ml Inj IVP PRN ×2 (05:44→14:41)
[2019-04-25] MEDS: Miralax 17gm pkt ORAL PRN (05:47)
--- NOTE | 2019-04-25 06:05 | General Progress Note ---
Assessment/Plan Problem List: (1) Diabetes mellitus ICD Codes: E11.9 - Type 2 diabetes mellitus without complications SNOMED: 72941860 (2) Hyperglycemia ICD Codes: R73.9 - Hyperglycemia, unspecified SNOMED: 38648757 (3) Pyelonephritis ICD Codes: N12 - Tubulo-interstitial nephritis, not specified as acute or chronic SNOMED: 30997399 Assessment/Plan: increase Levemir to 36 units daily continue Novolog 10 units ac tid continue NISS ac / hs continue Metformin 500 mg tid Subjective Allergies: Coded Allergies: AMPICILLIN (Verified Allergy, Unknown, hives, 04/21/19) All Systems: reviewed and negative except above Subjective glucose values are still elevated Item Value Date Time Bedside Blood Glucose 226 mg/dl H 04/25/19 0539 Bedside Blood Glucose 200 mg/dl H 04/24/19 2039 Bedside Blood Glucose 132 mg/dl H 04/24/19 1650 Bedside Blood Glucose 229 mg/dl H 04/24/19 1226 Bedside Blood Glucose 212 mg/dl H 04/24/19 0848 Objective Last 24 Hour Vital Signs Date Time Temp Pulse Resp B/P (MAP) Pulse Ox O2 Delivery O2 Flow Rate FiO2 04/25/19 04:00 98.1 82 18 126/68 (87) 98 04/24/19 23:40 98.9 98 16 123/88 (100) 100 04/24/19 20:43 Room Air 04/24/19 20:00 98.1 87 19 158/91 (113) 99 04/24/19 19:58 87 16 98 Room Air 21 04/24/19 16:00 98.5 72 17 140/80 (100) 98 04/24/19 12:00 98.5 86 18 125/81 (96) 98 86 04/24/19 11:44 84 16 97 Room Air 21 04/24/19 09:00 Room Air 04/24/19 08:00 97.9 106 18 131/79 (96) 97 86 Intake and Output 04/24/19 04/25/19 19:00 07:00 Intake Total 1305 ml 675 ml Balance 1305 ml 675 ml Intake Oral 680 ml IV Total 625 ml 675 ml # Voids 2 3 # Bowel Movements 1 Laboratory Tests 04/25/19 04:35: White Blood Count 6.2, Red Blood Count 4.61, Hemoglobin 11.0L, Hematocrit 33.8L , Mean Corpuscular Volume 73L, Mean Corpuscular Hemoglobin 24.0L, Mean Corpuscular Hemoglobin Concent 32.7, Red Cell Distribution Width 14.0, Platelet Count 286, Mean Platelet Volume 5.7L, Neutrophils (%) (Auto) 49.3, Lymphocytes ( %) (Auto) 35.8, Monocytes (%) (Auto) 11.9H, Eosinophils (%) (Auto) 2.4, Basophils (%) (Auto) 0.6, Sodium Level 137, Potassium Level 4.0, Chloride Level 100, Carbon Dioxide Level 29, Anion Gap 8, Blood Urea Nitrogen 5L, Creatinine 0.5L, Estimat Glomerular Filtration Rate > 60, Glucose Level 262H, Calcium Level 9.0, Total Bilirubin 0.2, Aspartate Amino Transf (AST/SGOT) 46H, Alanine Aminotransferase (ALT/SGPT) 64, Alkaline Phosphatase 262H, Total Protein 7.4, Albumin 2.3L, Globulin 5.1, Albumin/Globulin Ratio 0.5L, Amylase Level 29, Lipase 105 Height (Feet): 5 Height (Inches): 4.00 Weight (Pounds): 150 General Appearance: no apparent distress Neck: normal alignment Cardiovascular: normal rate Respiratory/Chest: lungs clear Pelvis: normal external exam Objective Current Medications Medications (Trade) Dose Ordered Sig/Shira Route PRN Reason Start Time Stop Time Status Last Admin Dose Admin Acetaminophen (Tylenol) 650 mg Q4H PRN ORAL fever 04/20/19 21:30 05/20/19 21:29 04/21/19 19:34 Albuterol/ Ipratropium (Albuterol/ Ipratropium) 3 ml Q4H PRN HHN Shortness of Breath 04/20/19 21:30 04/25/19 21:29 Dextrose (Dextrose 50%) 25 ml Q30M PRN IV Hypoglycemia 04/22/19 13:00 05/22/19 12:59 Dextrose (Dextrose 50%) 50 ml Q30M PRN IV Hypoglycemia 04/22/19 13:00 05/22/19 12:59 Diphenhydramine HCl (Benadryl) 25 mg Q6H PRN IVP Itching 04/21/19 11:15 05/21/19 11:14 04/25/19 05:44 Heparin Sodium (Porcine) (Heparin 5000 units/ml) 5,000 units EVERY 12 HOURS SUBQ 04/21/19 09:00 05/21/19 08:59 04/24/19 20:10 Insulin Aspart (NovoLOG) BEFORE MEALS AND HS SUBQ 04/21/19 06:30 05/21/19 06:29 04/25/19 05:39 Insulin Aspart (NovoLOG) 10 units NOVOTIAC SUBQ 04/23/19 11:50 05/22/19 16:49 04/24/19 20:11 Insulin Detemir (Levemir) 30 units DAILY SUBQ 04/23/19 09:00 05/22/19 13:59 04/24/19 08:48 Levofloxacin (Levaquin) 500 mg DAILY ORAL 04/25/19 09:00 05/02/19 08:59 Metformin HCl (Glucophage) 500 mg TIAC ORAL 04/22/19 16:30 05/22/19 16:29 04/25/19 05:39 Morphine Sulfate (Morphine Sulfate) 4 mg Q4H PRN IVP For Pain 04/21/19 07:15 04/28/19 07:14 04/25/19 04:45 Nitroglycerin (Ntg) 0.4 mg Q5M PRN SL Prn Chest Pain 04/20/19 21:30 05/20/19 21:29 Ondansetron HCl (Zofran) 4 mg Q6H PRN IVP Nausea & Vomiting 04/20/19 21:30 05/20/19 21:29 04/25/19 00:46 Polyethylene Glycol (Miralax) 17 gm DAILYPRN PRN ORAL Constipation 04/20/19 21:30 05/20/19 21:29 04/25/19 05:47 Potassium Chloride/Sodium Chloride 1,000 ml @ 75 mls/hr [id number] IV 04/21/19 15:00 05/21/19 14:59 04/24/19 22:19 Temazepam (Restoril) 15 mg HSPRN PRN ORAL Insomnia 04/20/19 21:30 04/27/19 21:29 04/22/19 02:23 Shayan Young MD Apr 25, 2019 06:05
--- NOTE | 2019-04-25 06:44 | General Progress Note ---
Assessment/Plan Assessment/Plan: Assessment/Plan Assessment/Plan: N/V UTI pyelonephritis elevated LFTS anemia elevated lipase abx abd us - negative hepatitis serologies - neg repeat labs anemia work up - needs outpatient EGD/Colon will fu Subjective Allergies: Coded Allergies: AMPICILLIN (Verified Allergy, Unknown, hives, 04/21/19) Objective Last 24 Hour Vital Signs Date Time Temp Pulse Resp B/P (MAP) Pulse Ox O2 Delivery O2 Flow Rate FiO2 04/25/19 04:00 98.1 82 18 126/68 (87) 98 04/24/19 23:40 98.9 98 16 123/88 (100) 100 04/24/19 20:43 Room Air 04/24/19 20:00 98.1 87 19 158/91 (113) 99 04/24/19 19:58 87 16 98 Room Air 21 04/24/19 16:00 98.5 72 17 140/80 (100) 98 04/24/19 12:00 98.5 86 18 125/81 (96) 98 86 04/24/19 11:44 84 16 97 Room Air 21 04/24/19 09:00 Room Air 04/24/19 08:00 97.9 106 18 131/79 (96) 97 86 Intake and Output 04/24/19 04/25/19 19:00 07:00 Intake Total 1305 ml 825 ml Balance 1305 ml 825 ml Intake Oral 680 ml IV Total 625 ml 825 ml # Voids 2 3 # Bowel Movements 1 Laboratory Tests 04/25/19 04:35: White Blood Count 6.2, Red Blood Count 4.61, Hemoglobin 11.0L, Hematocrit 33.8L , Mean Corpuscular Volume 73L, Mean Corpuscular Hemoglobin 24.0L, Mean Corpuscular Hemoglobin Concent 32.7, Red Cell Distribution Width 14.0, Platelet Count 286, Mean Platelet Volume 5.7L, Neutrophils (%) (Auto) 49.3, Lymphocytes ( %) (Auto) 35.8, Monocytes (%) (Auto) 11.9H, Eosinophils (%) (Auto) 2.4, Basophils (%) (Auto) 0.6, Sodium Level 137, Potassium Level 4.0, Chloride Level 100, Carbon Dioxide Level 29, Anion Gap 8, Blood Urea Nitrogen 5L, Creatinine 0.5L, Estimat Glomerular Filtration Rate > 60, Glucose Level 262H, Calcium Level 9.0, Total Bilirubin 0.2, Aspartate Amino Transf (AST/SGOT) 46H, Alanine Aminotransferase (ALT/SGPT) 64, Alkaline Phosphatase 262H, Total Protein 7.4, Albumin 2.3L, Globulin 5.1, Albumin/Globulin Ratio 0.5L, Amylase Level 29, Lipase 105 Height (Feet): 5 Height (Inches): 4.00 Weight (Pounds): 150 General Appearance: alert EENT: normal ENT inspection Neck: supple Cardiovascular: normal rate Respiratory/Chest: lungs clear Abdomen: normal bowel sounds, non tender, soft Extremities: non-tender Roni Alvarez MD Apr 25, 2019 06:44
--- NOTE | 2019-04-25 07:17 | NUR ---
HAND-OFF: Report given to LAURA Sutherland.
[2019-04-25 08:00] VITALS: BP 106/63
[2019-04-25] MEDS: Heparin 5000 units/ml inj SUBQ SCH (08:42)
[2019-04-25] MEDS ORDERED: Levofloxacin 500mg tab ORAL SCH (09:00)
[2019-04-25] MEDS ORDERED: Levemir Flexpen SUBQ SCH (09:00)
--- NOTE | 2019-04-25 11:05 | Infectious Diseases Prog Note ---
Assessment/Plan Assessment/Plan Assessment: Sepsis UTI/pyelonephritis -04/22 Bcx N TD -u/a wbc tnct, nit neg, leuk +2; ucx >100k E.coli (R bactrim, amp; otherwise S ) -Abd US: No acute findings in the abdomen. Fever; SP Leukocytosis; SP DM2 s/p cholecystectomy Plan: -Continue Levaquin #5/ for pyelonephritis -ok to discharge on PO Levaquin 500mg qd for 5 more days -04/22 SP aztreonam #3 -04/21 SP IV Vancomycin #1 -04/20 SP CIpro x1 -f/u cx -Monitor CBC/CMP, temperatures -f/u Bcx x2 Thank you for this consultation. Will continue to follow along with you. Discussed with RN Subjective Allergies: Coded Allergies: AMPICILLIN (Verified Allergy, Unknown, hives, 04/21/19) Subjective afebrile >72hrs no leukocytosis Bcx NTD Discharge planning Objective Vital Signs Last 24 Hour Vital Signs Date Time Temp Pulse Resp B/P (MAP) Pulse Ox O2 Delivery O2 Flow Rate FiO2 04/25/19 09:00 Room Air 04/25/19 08:00 98.4 81 16 106/63 (77) 97 04/25/19 08:00 95 14 96 Room Air 21 04/25/19 04:00 98.1 82 18 126/68 (87) 98 04/24/19 23:40 98.9 98 16 123/88 (100) 100 04/24/19 20:43 Room Air 04/24/19 20:00 98.1 87 19 158/91 (113) 99 04/24/19 19:58 87 16 98 Room Air 21 04/24/19 16:00 98.5 72 17 140/80 (100) 98 04/24/19 12:00 98.5 86 18 125/81 (96) 98 86 04/24/19 11:44 84 16 97 Room Air 21 Height (Feet): 5 Height (Inches): 4.00 Weight (Pounds): 150 Objective General Appearance: alert EENT: normal ENT inspection Neck: supple Cardiovascular: normal rate Respiratory/Chest: lungs clear Abdomen: normal bowel sounds, non tender, soft Extremities: non-tender Microbiology Date/Time Source Procedure Growth Status 04/22/19 12:00 Blood Blood Culture - Preliminary NO GROWTH AFTER 48 HOURS Resulted 04/22/19 11:15 Blood Blood Culture - Preliminary NO GROWTH AFTER 48 HOURS Resulted Laboratory Tests Test 04/25/19 04:35 White Blood Count 6.2 K/UL (4.8-10.8) Red Blood Count 4.61 M/UL (4.20-5.40) Hemoglobin 11.0 G/DL (12.0-16.0) L Hematocrit 33.8 % (37.0-47.0) L Mean Corpuscular Volume 73 FL (80-99) L Mean Corpuscular Hemoglobin 24.0 PG (27.0-31.0) L Mean Corpuscular Hemoglobin Concent 32.7 G/DL (32.0-36.0) Red Cell Distribution Width 14.0 % (11.6-14.8) Platelet Count 286 K/UL (150-450) Mean Platelet Volume 5.7 FL (6.5-10.1) L Neutrophils (%) (Auto) 49.3 % (45.0-75.0) Lymphocytes (%) (Auto) 35.8 % (20.0-45.0) Monocytes (%) (Auto) 11.9 % (1.0-10.0) H Eosinophils (%) (Auto) 2.4 % (0.0-3.0) Basophils (%) (Auto) 0.6 % (0.0-2.0) Sodium Level 137 MMOL/L (136-145) Potassium Level 4.0 MMOL/L (3.5-5.1) Chloride Level 100 MMOL/L (98-107) Carbon Dioxide Level 29 MMOL/L (21-32) Anion Gap 8 mmol/L (5-15) Blood Urea Nitrogen 5 mg/dL (7-18) L Creatinine 0.5 MG/DL (0.55-1.30) L Estimat Glomerular Filtration Rate > 60 mL/min (>60) Glucose Level 262 MG/DL (74-106) H Calcium Level 9.0 MG/DL (8.5-10.1) Total Bilirubin 0.2 MG/DL (0.2-1.0) Aspartate Amino Transf (AST/SGOT) 46 U/L (15-37) H Alanine Aminotransferase (ALT/SGPT) 64 U/L (12-78) Alkaline Phosphatase 262 U/L (46-116) H Total Protein 7.4 G/DL (6.4-8.2) Albumin 2.3 G/DL (3.4-5.0) L Globulin 5.1 g/dL Albumin/Globulin Ratio 0.5 (1.0-2.7) L Amylase Level 29 U/L (25-115) Lipase 105 U/L (73-393) Current Medications Medications (Trade) Dose Ordered Sig/Shira Route PRN Reason Start Time Stop Time Status Last Admin Dose Admin Acetaminophen (Tylenol) 650 mg Q4H PRN ORAL fever 04/20/19 21:30 05/20/19 21:29 04/21/19 19:34 Albuterol/ Ipratropium (Albuterol/ Ipratropium) 3 ml Q4H PRN HHN Shortness of Breath 04/20/19 21:30 04/25/19 21:29 Dextrose (Dextrose 50%) 25 ml Q30M PRN IV Hypoglycemia 04/22/19 13:00 05/22/19 12:59 Dextrose (Dextrose 50%) 50 ml Q30M PRN IV Hypoglycemia 04/22/19 13:00 05/22/19 12:59 Diphenhydramine HCl (Benadryl) 25 mg Q6H PRN IVP Itching 04/21/19 11:15 05/21/19 11:14 04/25/19 05:44 Heparin Sodium (Porcine) (Heparin 5000 units/ml) 5,000 units EVERY 12 HOURS SUBQ 04/21/19 09:00 05/21/19 08:59 04/25/19 08:42 Insulin Aspart (NovoLOG) BEFORE MEALS AND HS SUBQ 04/21/19 06:30 05/21/19 06:29 04/25/19 05:39 Insulin Aspart (NovoLOG) 10 units NOVOTIAC SUBQ 04/23/19 11:50 05/22/19 16:49 04/24/19 20:11 Insulin Detemir (Levemir) 36 units DAILY SUBQ 04/25/19 09:00 05/22/19 13:59 04/25/19 08:48 Levofloxacin (Levaquin) 500 mg DAILY ORAL 04/25/19 09:00 05/02/19 08:59 04/25/19 08:47 Metformin HCl (Glucophage) 500 mg TIAC ORAL 04/22/19 16:30 05/22/19 16:29 04/25/19 05:39 Morphine Sulfate (Morphine Sulfate) 4 mg Q4H PRN IVP For Pain 04/21/19 07:15 04/28/19 07:14 04/25/19 04:45 Nitroglycerin (Ntg) 0.4 mg Q5M PRN SL Prn Chest Pain 04/20/19 21:30 05/20/19 21:29 Ondansetron HCl (Zofran) 4 mg Q6H PRN IVP Nausea & Vomiting 04/20/19 21:30 05/20/19 21:29 04/25/19 08:22 Polyethylene Glycol (Miralax) 17 gm DAILYPRN PRN ORAL Constipation 04/20/19 21:30 05/20/19 21:29 04/25/19 05:47 Potassium Chloride/Sodium Chloride 1,000 ml @ 75 mls/hr [id number] IV 04/21/19 15:00 05/21/19 14:59 04/24/19 22:19 Temazepam (Restoril) 15 mg HSPRN PRN ORAL Insomnia 04/20/19 21:30 04/27/19 21:29 04/22/19 02:23 Lupe Valles M.D. Apr 25, 2019 11:05
[2019-04-25 11:50] VITALS: BP 132/85
[2019-04-25 12:05] VITALS: BP 132/85
[2019-04-25] MEDS: NS w/KCl 40mEq 1,000 ML IV SCH (12:34)
[2019-04-25] MEDS ORDERED: LEVAQUIN500 MG ORAL (14:23)
[2019-04-25 16:00] VITALS: BP 114/74
--- NOTE | 2019-04-25 16:23 | Internal Med Progress Note ---
Subjective Date of Service: Apr 25, 2019 Physician Name Juan R Dupree Attending Physician Arnoldo Alvarez MD Current Medications Medications (Trade) Dose Ordered Sig/Shira Route PRN Reason Start Time Stop Time Status Last Admin Dose Admin Acetaminophen (Tylenol) 650 mg Q4H PRN ORAL fever 04/20/19 21:30 05/20/19 21:29 04/21/19 19:34 Albuterol/ Ipratropium (Albuterol/ Ipratropium) 3 ml Q4H PRN HHN Shortness of Breath 04/20/19 21:30 04/25/19 21:29 Dextrose (Dextrose 50%) 25 ml Q30M PRN IV Hypoglycemia 04/22/19 13:00 05/22/19 12:59 Dextrose (Dextrose 50%) 50 ml Q30M PRN IV Hypoglycemia 04/22/19 13:00 05/22/19 12:59 Diphenhydramine HCl (Benadryl) 25 mg Q6H PRN IVP Itching 04/21/19 11:15 05/21/19 11:14 04/25/19 14:41 Heparin Sodium (Porcine) (Heparin 5000 units/ml) 5,000 units EVERY 12 HOURS SUBQ 04/21/19 09:00 05/21/19 08:59 04/25/19 08:42 Insulin Aspart (NovoLOG) BEFORE MEALS AND HS SUBQ 04/21/19 06:30 05/21/19 06:29 04/25/19 12:36 Insulin Aspart (NovoLOG) 10 units NOVOTIAC SUBQ 04/23/19 11:50 05/22/19 16:49 04/25/19 12:37 Insulin Detemir (Levemir) 36 units DAILY SUBQ 04/25/19 09:00 05/22/19 13:59 04/25/19 08:48 Levofloxacin (Levaquin) 500 mg DAILY ORAL 04/25/19 09:00 05/02/19 08:59 04/25/19 08:47 Metformin HCl (Glucophage) 500 mg TIAC ORAL 04/22/19 16:30 05/22/19 16:29 04/25/19 12:14 Morphine Sulfate (Morphine Sulfate) 4 mg Q4H PRN IVP For Pain 04/21/19 07:15 04/28/19 07:14 04/25/19 12:15 Nitroglycerin (Ntg) 0.4 mg Q5M PRN SL Prn Chest Pain 04/20/19 21:30 05/20/19 21:29 Ondansetron HCl (Zofran) 4 mg Q6H PRN IVP Nausea & Vomiting 04/20/19 21:30 05/20/19 21:29 04/25/19 08:22 Polyethylene Glycol (Miralax) 17 gm DAILYPRN PRN ORAL Constipation 04/20/19 21:30 05/20/19 21:29 04/25/19 05:47 Potassium Chloride/Sodium Chloride 1,000 ml @ 75 mls/hr [id number] IV 04/21/19 15:00 05/21/19 14:59 04/25/19 12:34 Temazepam (Restoril) 15 mg HSPRN PRN ORAL Insomnia 04/20/19 21:30 04/27/19 21:29 04/22/19 02:23 Allergies: Coded Allergies: AMPICILLIN (Verified Allergy, Unknown, hives, 04/21/19) ROS Limited/Unobtainable: No Constitutional: Reports: no symptoms HEENT: Reports: no symptoms Cardiovascular: Reports: no symptoms Respiratory: Reports: no symptoms Gastrointestinal/Abdominal: Reports: no symptoms Genitourinary: Reports: no symptoms Neurologic/Psychiatric: Reports: no symptoms Subjective 43 YO F admitted with abdominal pain. Now UTI and pyelonephritis. Cover for Int Ethan-Dr Alvarez Objective Last Vital Signs Date Time Temp Pulse Resp B/P (MAP) Pulse Ox O2 Delivery O2 Flow Rate FiO2 04/25/19 12:45 99.3 04/25/19 12:05 86 16 132/85 (101) 96 04/25/19 09:00 Room Air 04/25/19 08:00 21 Laboratory Tests Test 04/25/19 04:35 04/25/19 12:46 White Blood Count 6.2 K/UL (4.8-10.8) Red Blood Count 4.61 M/UL (4.20-5.40) Hemoglobin 11.0 G/DL (12.0-16.0) L Hematocrit 33.8 % (37.0-47.0) L Mean Corpuscular Volume 73 FL (80-99) L Mean Corpuscular Hemoglobin 24.0 PG (27.0-31.0) L Mean Corpuscular Hemoglobin Concent 32.7 G/DL (32.0-36.0) Red Cell Distribution Width 14.0 % (11.6-14.8) Platelet Count 286 K/UL (150-450) Mean Platelet Volume 5.7 FL (6.5-10.1) L Neutrophils (%) (Auto) 49.3 % (45.0-75.0) Lymphocytes (%) (Auto) 35.8 % (20.0-45.0) Monocytes (%) (Auto) 11.9 % (1.0-10.0) H Eosinophils (%) (Auto) 2.4 % (0.0-3.0) Basophils (%) (Auto) 0.6 % (0.0-2.0) Sodium Level 137 MMOL/L (136-145) Potassium Level 4.0 MMOL/L (3.5-5.1) Chloride Level 100 MMOL/L (98-107) Carbon Dioxide Level 29 MMOL/L (21-32) Anion Gap 8 mmol/L (5-15) Blood Urea Nitrogen 5 mg/dL (7-18) L Creatinine 0.5 MG/DL (0.55-1.30) L Estimat Glomerular Filtration Rate > 60 mL/min (>60) Glucose Level 262 MG/DL (74-106) H Calcium Level 9.0 MG/DL (8.5-10.1) Total Bilirubin 0.2 MG/DL (0.2-1.0) Aspartate Amino Transf (AST/SGOT) 46 U/L (15-37) H Alanine Aminotransferase (ALT/SGPT) 64 U/L (12-78) Alkaline Phosphatase 262 U/L (46-116) H Total Protein 7.4 G/DL (6.4-8.2) Albumin 2.3 G/DL (3.4-5.0) L Globulin 5.1 g/dL Albumin/Globulin Ratio 0.5 (1.0-2.7) L Amylase Level 29 U/L (25-115) Lipase 105 U/L (73-393) Stool Occult Blood Pending Intake and Output 04/24/19 04/25/19 19:00 07:00 Intake Total 1305 ml 900 ml Balance 1305 ml 900 ml Intake Oral 680 ml IV Total 625 ml 900 ml # Voids 2 3 # Bowel Movements 1 Objective PHYSICAL EXAMINATION: GENERAL: The patient is awake and responsive, in no acute distress. HEAD AND NECK: Pupils are equal and reactive to light. Extraocular muscles intact. Neck was supple. No JVD. LUNGS: Good air entry. No wheezes or rales. HEART: S1, S2. Regular rate and rhythm. No gallops. ABDOMEN: Soft. Tenderness in lower quadrant. No rebound tenderness. No fluid shift. CVA tenderness in bilateral flank area. EXTREMITIES: No cyanosis, clubbing, or edema NEUROLOGIC: Cranial nerves II through XII grossly normal. Motor 5/5 in all extremities. Gait is intact. RECTAL: Refused and deferred. GENITOURINARY: Refused and deferred. PSYCHIATRIC: Mood and affect is intact. Assessment/Plan Assessment/Plan ASSESSMENT: 1. UTI/Pyelonephritis=E. Coli 2. Diabetes type 2, uncontrolled. 3. Nausea, vomiting, abnormal liver function, most likely secondary to the intra-abdominal infection. 4. Hypokalemia. 5. Dehydration. PLAN: 1. Admit the patient to medical floor. 2. antibiotics = Levaquin 3. Dr. Valles=Infectious Disease 4. Dr. Alvarez=GI, 5. Dr. Smallwood =Pulmonary. 6. Code status is Full code. DVT prophylaxis SCD. 7. Discharge home today Juan R Dupree MD Apr 25, 2019 16:23
--- NOTE | 2019-04-25 19:00 | NUR ---
NURSE NOTES: QUIET IN BED. IN NO DISTRESS. FOR DISCHARGE TODAY. WAITING FOR BOYFRIEND TO PICK HER UP.
--- NOTE | 2019-04-25 19:23 | NUR ---
HAND-OFF: Report given to adalgisa san rn.
--- NOTE | 2019-04-25 19:40 | NUR ---
NURSE NOTES: Discharged pt via wheelchair in stable condition. IV removed applied 2x2 and tape. All belongings taken and prescriptions with pt. No distress noted.
--- NOTE | 2019-04-27 08:57 | Discharge Summary ---
Discharge Summary Discharge Summary _ DATE OF ADMISSION: 04/20/2019 DATE OF DISCHARGE: 04/25/2019 DISCHARGED BY: Dr. Alvarez REASON FOR ADMISSION: 43 years old female with past medical history of diabetes mellitus type 2, status post cholecystectomy, presented to emergency department complaining of lower abdominal pain, radiating to her back and associated with fever and chills. Patient was seen by her primary physician due to dysuria and presumptive UTI and started on Bactrim. Dysuria improved, however abdominal pain became progressively worse with associated fevers, chills , nausea, vomiting and headache. Patient subsequently presented to emergency department for further management. Shortly after initial evaluation patient was diagnosed with sepsis secondary to UTI, possible pyelonephritis as well as electrolyte abnormalities/ hyponatremia and hypokalemia. Patient admitted for further management. CONSULTANTS: pulmonary Dr. Smallwood ID specialist Dr. Valles Addressing Machine Operator Dr. Young GI specialist Dr. Alvarez [facility] COURSE: Patient admitted to medical surgical floor. Patient started on IV fluids and empiric antibiotic as per ID specialist recommendation. Urine culture revealed E. coli. Blood cultures were negative. Initial leukocytosis resolved. Fevers eventually resolved as well. Symptomatic treatment provided . Antiemetic provided as needed , and oral hydration was encouraged. Patient was able to tolerate diet.. Hepatitis panel was negative. LFT trending down : AST from 58 down to 46 and ALT remained stable . Potassium replaced , and sodium corrected with IV fluids . Prior to discharge sodium 137, potassium 4.0. Renal parameters were closely monitored and remained stable. Nephrotoxic's were avoided. Blood sugar was managed as per underwriting assistant recommendation . Diabetic diet and diabetic teaching provided. Hemoglobin A1c 11.1 , clearly not at goal. Patient will need further optimization of anti-glycemic regimen as outpatient to improve blood sugar control. Abdominal ultrasound revealed no acute findings. Hemoglobin and hematocrit were closely monitored with goal to keep hemoglobin above 7. Hemoglobin and hematocrit remained at baseline, and prior to discharge hemoglobin 11 , hematocrit 33.8. Stool for occult blood was negative. GI specialist recommended outpatient EGD and colonoscopy for further anemia work -up. Patient clinically stabilized. Fever and leukocytosis resolved. Patient was able to tolerate diet ; nausea and vomiting resolved. ID specialist recommended to continue 5 more days of Levaquin to complete the course. Patient was stable for discharge home. FINAL DIAGNOSES: Sepsis due to pyelonephritis E. coli pyelonephritis Diabetes mellitus [id number] with hyperglycemia Abnormal LFT Nausea and vomiting Electrolyte abnormalities: hypokalemia hyponatremia Dehydration DISCHARGE MEDICATIONS: See Medication Reconciliation list. DISCHARGE INSTRUCTIONS: Patient was discharged home. Follow-up with a primary care provider in 1 week. I have been assigned to dictate discharge summary for this account. I was not involved in the patient's management. Larisa Boyd NP Apr 27, 2019 08:57
--- NOTE | 2019-04-27 15:40 | NUR ---
*-* INSURANCE *-* ALL AVAILABLE CLINICALS AND REVIEWS HAVE BEEN FAXED TO: ANNELIESE RUIZ# [id number] F:[phone] Addendum: 04/27/19 at 1541 by JASPAL GUERRERO CM DISCHARGE SUMMARY HAS BEEN FAXED
== END 2019-04-25 19:51 | disposition home or self-care (01) | DRG 872 ==
LOC: EMR 18:15 → 3E 20:00 → EDBEDREQ 20:18
DX: A41.9 Sepsis, unspecified organism (principal); N10 Acute pyelonephritis; N39.0 Urinary tract infection, site not specified; E87.1 Hypo-osmolality and hyponatremia; R11.2 Nausea with vomiting, unspecified; E87.6 Hypokalemia; B96.20 Unspecified Escherichia coli [E. coli] as the cause of diseases classified elsewhere; Z90.49 Acquired absence of other specified parts of digestive tract; Z79.84 Long term (current) use of oral hypoglycemic drugs; E86.0 Dehydration; E11.65 Type 2 diabetes mellitus with hyperglycemia; Z88.1 Allergy status to other antibiotic agents; D64.9 Anemia, unspecified
CPT/HCPCS: 36415; 76700; 80048; 80053; 80202; 81003; 81025; 82009; 82150; 82270; 82607; 82746; 82962; 83036; 83540; 83550; 83690; 83735; 84100; 85007; 85025; 86705; 86709; 86803; 87040; 87086; 87181; 87340; 94664; 96361; 96365; 96367; 96372; 96375; 99285; J1815; J2405; J7030; J8499; S5561